=== PATIENT | male | born 1965 | race Caucasian/White ===

== ENCOUNTER 2023-05-15 01:20 | Inpatient (IN) ==
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
[2023-05-15] MEDS ORDERED: VANCOMYCIN CONSULT ACTIVE PRN ×2 (10:21→12:09)
[2023-05-15] MEDS: Patient's ALLERGY Info needs ENTERED SCH (10:49)
[2023-05-15] MEDS: PROPOFOL IV EMULSION 10 MG/ML 100 ML VIAL IV ONE ×2 (11:13→14:15)
[2023-05-15] MEDS: metroNIDAZOLE 500 MG/100 ML BAG IV SCH (11:14)
[2023-05-15] MEDS: CEFEPIME 2,000 MG in SYRINGE 0 ML IV ONE (11:14)
--- NOTE | 2023-05-15 11:15 | XRay Report ---
XR orbits for MRI HISTORY: 58 years-old Male Screening for foreign body for MRI screening for MRI COMPARISON: None TECHNIQUE: 3 views of the orbits FINDINGS: Endotracheal and enteric tubes are noted. Dental amalgam hardware. No opaque foreign body of the orbi ts identified. IMPRESSION: No opaque foreign body of the orbits identified. ACT 112: Negative or not required by law. The above report was generated using voice recognition software. It may contain grammatical, syntax o r spelling errors. Electronically signed by: Juan Diego Casey M.D. 05/15/2023 11:14 AM
[2023-05-15 11:20] LABS: Albumin Globulin Ratio 1.4 (0.9-2); Albumin Level 3.8 gm/dl (3.4-5.0); BUN Creatinine Ratio 9.6 (10-20); Bilirubin,Total 0.6 mg/dl (0.2-1.0); Calcium 8.6 mg/dl (8.6-10.3); Creatinine Clr Calc Pharmacy 70.1 ml/min; Est GFR (African American) 66.9 ml/min; Est GFR (Non-African American) 57.8 ml/min; Globulin 2.7 gm/dl (2.5-4.0); Potassium 3.6 mmol/L (3.5-5.1); Total Protein 6.5 gm/dl (6.0-8.3)
[2023-05-15 11:26] LABS: Troponin I High Sensitivity 3.6 pg/ml (0-20)
[2023-05-15 11:32] LABS: Basophils % (auto) 0.2 %; Eosinophils # (auto) 0.06 K/uL (0.00-0.50); Eosinophils % (auto) 0.7 %; Hematocrit (blood only) 39.9 % (42.0-52.0); Hemoglobin 13.7 g/dl (14.0-18.0); Immature Granulocytes % (auto) 0.2 %; Lymphocytes # (auto) 1.24 K/uL (1.20-3.40); Mean Corpuscular Hemoglobin 29.2 pg (25.0-34.0); Mean Corpuscular Hgb Conc 34.3 g/dL (32.0-36.0); Mean Corpuscular Volume 85.1 fL (80.0-100.0); Mean Platelet Volume 13.1 fL (9.4-12.4); Monocytes # (auto) 0.56 K/uL (0.11-0.59); Monocytes % (auto) 6.3 %; Neutrophils # (auto) 6.95 K/uL (1.40-6.50); Neutrophils % (auto) 78.6 %; Platelet Count 148 K/uL (130-400); RDW Coefficient of Variation 13.2 % (11.5-14.5); RDW Standard Deviation 40.6 fL (36.4-46.3); Red Blood Count 4.69 M/uL (4.70-6.10); White Blood Count 8.85 K/ul (4.8-10.8)
[2023-05-15 11:33] LABS: Basophils # (auto) 0.02 K/uL (0.00-0.20); Immature Granulocytes # (auto) 0.02 K/uL (0.01-0.20)
[2023-05-15] MEDS ORDERED: STAT IV Infusion **Titration per Protocol STA ×2 (12:25→20:03)
[2023-05-15] MEDS: propofoL 1,000 MG/100 ML VIAL IV SCH (12:30)
[2023-05-15] MEDS: ICU Protocol for HYPERglycemia SCH (12:34)
[2023-05-15] MEDS: Patient's ALLERGY Info needs ENTERED STA (12:35)
[2023-05-15] MEDS: OPTIRAY 320 125ml IV ONE (12:35)
[2023-05-15] MEDS: VANCOMYCIN HCL 2,000 MG in SODIUM CHLORIDE 0.9% 500 ML IV ONE (12:36)
[2023-05-15 13:00] LABS: Magnesium 2.1 mg/dl (1.7-2.4)
[2023-05-15] MEDS: PROPOFOL BOLUS FROM BAG IV PRN (13:00)
--- NOTE | 2023-05-15 13:27 | Electrocardiogram Report ---
Test Reason : Blood Pressure : / mmHG Vent. Rate : 075 BPM Atrial Rate : 075 BPM P-R Int : 162 ms QRS Dur : 086 ms QT Int : 374 ms P-R-T Axes : 039 -06 014 degrees QTc Int : 417 ms Normal sinus rhythm Incomplete right bundle branch block Left atrial enlargement Borderline ECG No previous ECGs available Confirmed by Tunde Johnson ([id number]) on 05/15/2023 1:26:55 PM Referred By: Lee Alves Confirmed By:Tunde Johnson
--- NOTE | 2023-05-15 13:41 | CT Scan Report ---
CT angio chest PE protocol CT DOSE: 773.49 mGy.cm HISTORY: 58 years-old Male with PE. Acute shortness of breath TECHNIQUE: Multiple CTA images of the chest were obtained after the intravenous administration of 117 ml Optiray. Coronal and sagittal MIPS were obtained from the axial data set and were submitted for review. All measurements were obtained according to NASCET criteria. A dose lowering technique was u tilized adhering to the principles of ALARA. COMPARISON: None. FINDINGS: CTA: Mild cardiomegaly. No pericardial effusion. Unremarkable thoracic aorta. No pulmonary emboli. CT CHEST: Unremarkable thyroid. Satisfactory positioning of the endotracheal tube. There are a few borderline e nlarged mediastinal and hilar lymph nodes measuring up to 12 mm within the right hilum. Trace pleural effusions. No pneumothorax. Distal tip of enteric tube terminates in the gastric body. Dependent bib asilar consolidation, right greater than left with mild mucous plugging. No acute upper abdominal abn ormality. No acute fracture. IMPRESSION: 1. No pulmonary emboli identified. 2. Satisfactory positioning of the endotracheal and enteric tubes. 3. Dependent bibasilar consolidation with right lower lobe mucous plugging. Findings are favored to r epresent atelectasis, however aspiration/pneumonia could appear similarly. 4. Mild nonspecific mediastinal and hilar lymphadenopathy. ACT 112: Negative or not required by law. The above report was generated using voice recognition software. It may contain grammatical, syntax o r spelling errors. Electronically signed by: Juan Diego Casey M.D. 05/15/2023 1:39 PM
--- NOTE | 2023-05-15 14:09 | Critical Care Consultation ---
Date of Consultation May 15, 2023 Assessment & Plan (1) Abnormal brain MRI: (2) Aspiration pneumonia: (3) Paroxysmal A-fib: (4) Respiratory failure: (5) Syncope and collapse: Plan 58-year-old male with a history of hypertension and presenting to the to the hospital as a direct admission from another facility due to acute hypoxic respiratory failure and altered mental status. MRI of the brain concerning for possible lesion in the right parietal region. Further imaging will be required with contrast. Will start the patient on antiepileptic therapy at this time. Continue broad-spectrum antibiotics to cover for aspiration pneumonia. MRSA screen was negative and thus vancomycin was discontinued. Follow cultures from the sputum, blood and urine. Will also obtain bronchoscopic cultures. Obtain EEG to evaluate for ongoing epileptic activity. May have a low threshold for transfer to tertiary center if EEG is identifying seizure activity despite propofol and antiepileptic medications. Continue with propofol and fentanyl for pain and sedation control. Maintain RASS goal -2. SCDs and Lovenox for DVT prophylaxis. Patient's updated at bedside. Patient is currently a full code. CRITICAL CARE TIME - I have personally spent 44 minutes of critical care time in the direct management of this patient. This is a life/limb threatening event. This includes time spent evaluating patient, direct bedside care, chart review, placing orders, interpretation of diagnostic studies, discussion with consultants, patient, and family members, as well as other required patient management activities. This time is exclusive of all separately billable procedures, and teaching time and separate from and in addition to any other critical care service time. History of Present Illness Reason for Consultation: Intubated and sedated. Attending Physician: Lee Alves MD History of Present Illness History is unobtainable from the patient as he is currently intubated and sedated. History is obtained from review of the chart, discussion with the hospitalist service, discussion with at bedside and bedside nursing. Patient was reportedly in the garage yesterday and has been relatively well taking care of items in the garage and talking to his son. Suddenly he appeared confused and started to fall. His son caught him and lowered him to the ground. Patient was unresponsive. He apparently woke up and appeared blue. CPR was initiated. EMS arrived and observed left-sided facial droop with left-sided gaze preference. Some hand twitching was noted, but no significant shaking or myoclonic activity. Patient was reportedly bradycardic while in the ER. He was unable to be successfully intubated in the field and brought to the ER where he was intubated. He was noted to have bradycardia with heart rates in the 20s in the ER. [facility] [place] was consulted for possible higher level of care. Patient was transferred to ICU via [facility]. He is currently intubated and sedated with propofol and fentanyl. He had a CT of his chest which revealed no evidence of pulmonary embolism. Mild nonspecific mediastinal and hilar lymphadenopathy. Dependent bibasilar consolidation with mucous plugging noted. MRI brain is concerning for possible right-sided parietal lesion. CTA of the head and neck at the outside facility without any obvious evidence of stroke. Sputum cultures and blood cultures pending. Patient currently on cefepime, metronidazole. MRSA screen negative. Allergies Allergy/AdvReac Type Severity Reaction Status Date / Time No Known Allergies Allergy Unverified 05/15/23 12:34 Home Medications Medication Instructions Recorded Confirmed Type aspirin 81 mg chewable tablet 81 mg PO DAILY 05/15/23 05/15/23 History brimonidine 0.2 %-timolol 0.5 % 1 drp ophthalmic (eye) DAILY 05/15/23 05/15/23 History eye drops (Combigan) latanoprost 0.005 % eye drops 1 drp ophthalmic (eye) PM 05/15/23 05/15/23 History metoprolol tartrate 50 mg tablet 50 mg PO BID 05/15/23 05/15/23 History Patient History Medical History (Updated 05/15/23 @ 14:14 by Yann Lobo MD) Abnormal brain MRI HTN (hypertension) Aspiration pneumonia Respiratory failure Syncope and collapse Afib Family History (Updated 05/15/23 @ 11:26 by Lee Alves MD) Mother Cancer renal cancer requiring nephrectomy Brother Cancer leukemia Fibrillation, atrial w/ syncopal events and RVR Father Cancer 'some type of blood cancer' Fibrillation, atrial Social History (Updated 05/15/23 @ 11:27 by Lee Alves MD) Smoking Status: Never smoker Hx Alcohol Use: No Hx Substance Use: No Preferred Language: Arabic Communication Ability: Effective Electric Power Line Repairer Required: No Beliefs That Will Affect Care: None Current Living Situation: Spouse Other Information That Helps Us Care for You: No Feels Safe at Home: Declines to Answer Assistive Devices: Contacts Review of Systems Review of Systems: All systems reviewed & are unremarkable except as noted in HPI & below Physical Exam Physical Exam: Constitutional: Intubated Eyes: Pupils are equal round and reactive to light. Conjunctivae are normal. Anicteric sclera. Ears nose, mouth and throat: Patient currently intubated and sedated. Endotracheal tube in place Neck: Trachea is midline. Visual inspection is normal. Respiratory: Diminished bibasilar crackles. Cardiovascular: Regular rate and rhythm. No murmurs. No edema. Gastrointestinal: Normal bowel sounds, soft, nontender and nondistended. No hepatosplenomegaly noted. Musculoskeletal: No cyanosis. Patient is able to move all extremities. Strength is 5 out of 5 in the upper and lower extremities. Skin: No rashes, warm dry and intact. Neurologic: Sedated. No obvious focal signs Psychiatric: Unable to assess Results & Data Results & Data Vital Signs (Past 12 Hours) Vital Signs Temp Pulse Resp BP Pulse Ox O2 Del Method FiO2 05/15/23 10:57 Mechanical Vent 40 05/15/23 10:47 79 19 100 50 05/15/23 10:20 38.0 C H 79 18 97 05/15/23 10:17 38.0 C H 79 18 129/72 98 05/15/23 10:12 79 Coding Level of Care Code 68852 CRITICAL CARE 1ST 30-74M Diagnoses Abnormal brain MRI R90.89 Aspiration pneumonia of both lower lobes, unspecified aspiration pneumonia type J69.0 Laterality: bilateral Lung location: lower lobe of lung Aspiration pneumonia type: unspecified Paroxysmal A-fib I48.0 Acute respiratory failure with hypoxia J96.01 Chronicity: acute Respiratory failure complication: hypoxia Syncope and collapse R55 (2) Aspiration pneumonia Laterality: bilateral Lung location: lower lobe of lung Aspiration pneumonia type: unspecified Qualified Code(s): J69.0 - Pneumonitis due to inhalation of food and vomit (4) Respiratory failure Chronicity: acute Respiratory failure complication: hypoxia Qualified Code(s): J96.01 - Acute respiratory failure with hypoxia
[2023-05-15] MEDS: PLASMA-LYTE A 1,000 ML IV SCH (14:14)
[2023-05-15 14:33] LABS: Bilirubin Direct 0.1 mg/dl (0-0.2)
[2023-05-15] MEDS ORDERED: 0.2 MICRON FILTER SET 1 EACH IV SCH (14:45)
--- NOTE | 2023-05-15 14:50 | Procedure Note ---
Procedure Note: Bronchoscopy Procedure PREOPERATIVE DIAGNOSIS: Aspiration pneumonia POSTOPERATIVE DIAGNOSIS: Aspiration PROCEDURE PERFORMED: Flexible fiberoptic bronchoscopy with bronchial washing COMPLICATIONS: None. INDICATION: Evaluate for aspiration pneumonia PROCEDURE: Consent obtained from patient's as patient is intubated and sedated. Time out performed directly prior to to the bronchoscopy. Bronchoscope was inserted via the endotracheal tube. Patient was hyperoxygenated with 100% FiO2 via the ventilator. Endotracheal tube was appropriately positioned above the nolberto. Thick secretions were noted emanating from the bilateral lower lobes. These were suctioned and sent to the lab for processing. I performed aggressive suctioning and lavage of the right and left lower lobes. Airways appeared relatively clear after bronchoscopy. The bronchoscope was removed. Patient tolerated the procedure well. Recommendations: Follow-up bronchial wash cultures and cytology from the bilateral tracheobronchial tree. [facility] Procedure Codes (Charges) Pulmonary/Thoracic Procedure 1: Pulmonary and Thoracic: 13567 Dx bronchoscopy/wash
[2023-05-15] MEDS: PHENYTOIN 1,500 MG in 0.9 % SODIUM CHLORIDE 100 ML IV SCH (15:04)
[2023-05-15] MEDS ORDERED: LORazepam 2 MG in SYRINGE 1 ML IV PRN (15:18)
--- NOTE | 2023-05-15 15:19 | XCELERA ---
[id number] \\[id number]
[2023-05-15] MEDS: MIDAZOLAM HCL 1 MG/ML 2ML VIAL IV STA (15:51)
[2023-05-15] MEDS: GADOBUTROL 65ML VIAL IV ONE (16:30)
[2023-05-15 17:07] LABS: Eosinophil Body Fluid Man 1 %; Fluid Mono/Macrophage 4 %; Lymphocyte Body Fluid Man 2 %; Neutrophil Body Fluid Man 93 %
--- NOTE | 2023-05-15 17:44 | Electroencephalogram ---
EEG Procedure Note Date of Service May 15, 2023 Start / End Times Start Time: 171 End Time: [address] Lobo History 58 year old with seizure activity Home Medication List Medication Instructions Recorded Confirmed Type aspirin 81 mg chewable tablet 81 mg PO DAILY 05/15/23 05/15/23 History brimonidine 0.2 %-timolol 0.5 % 1 drp ophthalmic (eye) DAILY 05/15/23 05/15/23 History eye drops (Combigan) latanoprost 0.005 % eye drops 1 drp ophthalmic (eye) PM 05/15/23 05/15/23 History metoprolol tartrate 50 mg tablet 50 mg PO BID 05/15/23 05/15/23 History Inpatient Medication List Metronidazole (Flagyl) 500 mg in 100 mls @ 100 mls/hr IV Q8H OMAR; Protocol Stop: 05/22/23 10:59 Last Infusion: 05/15/23 12:16 Dose: Infused Documented By: Admin: 05/15/23 11:14 Dose: 100 mls/hr Documented By: SERGIO Parenteral Electrolytes (Plasma-Lyte A Ph 7.4) 1,000 mls @ 125 mls/hr IV .Q8H OMAR Stop: 06/14/23 11:59 Last Admin: 05/15/23 14:14 Dose: 125 mls/hr Documented By: FAREED Propofol (Diprivan) 1,000 mg in 100 mls @ 28.44 mls/hr IV .Q3H31M OMAR; Protocol Stop: 05/18/23 12:29 Last Admin: 05/15/23 17:09 Dose: 50 mcg/kg/min, 28.4 mls/hr Documented By: FAREED Co-signed By: DTT Titration: 05/15/23 17:09 Dose: Infused Documented By: NMS Co-signed By: DTT Admin: 05/15/23 14:19 Dose: 50 mcg/kg/min, 28.4 mls/hr Documented By: FAREED Co-signed By: DMB Titration: 05/15/23 14:19 Dose: Infused Documented By: FAREED Co-signed By: DMB Titration: 05/15/23 12:50 Dose: 50 mcg/kg/min, 28.4 mls/hr Documented By: Titration: 05/15/23 12:40 Dose: 40 mcg/kg/min, 22.8 mls/hr Documented By: Titration: 05/15/23 12:35 Dose: 30 mcg/kg/min, 17.1 mls/hr Documented By: Admin: 05/15/23 12:30 Dose: 20 mcg/kg/min, 11.4 mls/hr Documented By: FAREED Co-signed By: SARA Phenytoin 1,500 mg/ Sodium (Chloride) 130 mls @ 130 mls/hr IV TODAY@1445 [facility] Stop: 06/14/23 14:44 Last Infusion: 05/15/23 16:04 Dose: Infused Documented By: Admin: 05/15/23 15:04 Dose: 130 mls/hr Documented By: FAREED Miscellaneous (Icu Protocol For Hyperglycemia) 1 each N/A ACHS [facility] Stop: 05/17/23 11:29 Last Admin: 05/15/23 12:34 Dose: Not Given Documented By: FAREED Propofol (Propofol Bolus From Bag) 20 mg IV Q5M PRN PRN Reason: Sedation Stop: 05/18/23 12:24 Last Admin: 05/15/23 13:05 Dose: 20 mg Documented By: FAREED Co-signed By: SARA Admin: 05/15/23 13:00 Dose: 20 mg Documented By: FAREED Co-signed By: SARA Discontinued Medications Gadobutrol (Gadobutrol 65ml Vial) 9.4 ml IV ONCE ONE Stop: 05/15/23 16:24 Last Admin: 05/15/23 16:30 Dose: 9.4 ml Documented By: [facility] Cefepime HCl 2,000 mg/ Syringe 20 mls @ 5 mls/min IV NOW ONE; Protocol Stop: 05/15/23 11:03 Last Admin: 05/15/23 11:14 Dose: 5 mls/min Documented By: DTT Vancomycin HCl 2,000 mg/ (Sodium Chloride) 540 mls @ 200 mls/hr IV NOW ONE Stop: 05/15/23 13:41 Last Admin: 05/15/23 12:36 Dose: Not Given Documented By: FAREED Ioversol (Optiray 320 125ml) 117 ml IV ONCE ONE Stop: 05/15/23 12:35 Last Admin: 05/15/23 12:35 Dose: 117 ml Documented By: FAM Midazolam HCl (Midazolam Hcl 1 Mg/Ml 2ml Vial) 2 mg IV NOW STA Stop: 05/15/23 14:51 Last Admin: 05/15/23 15:51 Dose: 2 mg Documented By: FAREED Miscellaneous Information (Patient's Allergy Info Needs Entered) 1 each N/A Q30M OMAR Stop: 05/15/23 12:00 Last Admin: 05/15/23 11:59 Dose: Not Given Documented By: Admin: 05/15/23 11:58 Dose: Not Given Documented By: Admin: 05/15/23 10:49 Dose: 1 each Documented By: FAREED Miscellaneous Information (Patient's Allergy Info Needs Entered) 1 each N/A NOW STA Stop: 05/15/23 11:55 Last Admin: 05/15/23 12:35 Dose: 1 each Documented By: FAREED Propofol (Propofol Iv Emulsion 10 Mg/Ml 100 Ml Vial) Confirm Administered Dose 1,000 mg IV .STK-MED ONE Stop: 05/15/23 11:11 Last Admin: 05/15/23 11:13 Dose: 1,000 mg Documented By: DTT Co-signed By: FAREED Propofol (Propofol Iv Emulsion 10 Mg/Ml 100 Ml Vial) Confirm Administered Dose 1,000 mg IV .STK-MED ONE Stop: 05/15/23 12:26 Last Admin: 05/15/23 14:15 Dose: Not Given Documented By: FAREED Description This is a 21 electrode EEG with a single channel dedicated to limited EKG. The electrodes were placed in accordance with the International 10-20 system. Interpretation The predominant background activity consists of an irregular 12 Hz, of up to 20 mV in amplitude,seen symmetrically distributed over all head regions. Superimposed are irregular slower waves of 50-60 mV admixed with the background activity Photic stimulation was performed and elicited no change in the background activity and no abnormal responses were seen. Hyperventilation was not performed. A minimal amount of muscle and movement artifact activity contaminated the recording and did not hinder interpretation to any significant degree. Throughout the recording, no focal abnormalities or potentially epileptogenic discharges were seen. In summary, this EEG was abnormal with moderate slow activity of a generalized nature, without focal abnormalities or potentially epileptogenic activity Clinical Correlation The abscence of potentially epileptogenic activity does not exclude a seizure disorder, since interictally, EEGs can be normal. Clinical correlation is required. [facility] EEG Procedure Codes Indication for Procedure (1) Seizure-like activity: Neurology Neurology: 35725 EEG include record awake & drowsy
--- NOTE | 2023-05-15 17:51 | Magnetic Resonance Report ---
MR brain wo con, MR brain wo/w con HISTORY: 58 years-old Male LEFT facial droop/eye prehosp, unresponsive acutely altered mental status COMPARISON: None TECHNIQUE: Multiplanar multisequence MRI of the brain was obtained with and without the use of IV con trast. FINDINGS: No restricted diffusion to suggest acute or subacute infarct. The study is motion degraded. Midline s tructures appear unremarkable. No acute intracranial hemorrhage, midline shift or Cephalus. There is a focal area of cortical thickening with gyral expansion and sulcal effacement within the posterior r ight temporal lobe on image 13 series 8 measuring 3.4 x 2.3 x 2.8 cm demonstrating increased T2/FLAIR signal and decreased signal on the T1 series without restricted diffusion or enhancement. This is ce ntered around a 1.3 cm T2 hyperintense/cystic focus on image 12 series 8. Brain signal is otherwise w ithin normal limits. There is normal volume of the brain parenchyma. Cerebral venous sinuses and major arterial flow voids appear patent. The skull, orbits and soft tissu es are unremarkable. Small mastoid effusions, right greater than left. Moderate mucosal thickening of the ethmoid air cells. IMPRESSION: 1. 3.4 cm nonenhancing cortically based focus of signal abnormality within the posterior right tempor al lobe is nonspecific and is suspicious for a low-grade glial neoplasm. Cortical dysplasia is an add itional differential consideration. Follow up with neurology is needed. 2. No acute or subacute infarct. 3. No acute intracranial hemorrhage, midline shift or hydrocephalus. ACT 112: Positive. There are findings on this exam that require communication between the performing entity and the patient following Patient Test Result Information Act ([place] Act 112) guidelines. The above report was generated using voice recognition software. It may contain grammatical, syntax o r spelling errors. Electronically signed by: Juan Diego Casey M.D. 05/15/2023 5:49 PM
[2023-05-15] MEDS ORDERED: METOPROLOL TARTRATE 1 MG/ML VIAL IV SCH (18:00)
[2023-05-15] MEDS: CEFEPIME 2,000 MG in SYRINGE 0 ML IV SCH (18:40)
[2023-05-15] MEDS ORDERED: fentaNYL BOLUS from BAG IV PRN (20:03)
[2023-05-15] MEDS: fentaNYL citrate 2,500 MCG/250 ML BAG IV SCH (20:15)
[2023-05-15] MEDS ORDERED: VANCOMYCIN HCL 1,500 MG in SODIUM CHLORIDE 0.9% 500 ML IV SCH (22:00)
[2023-05-16] MEDS: PHENYTOIN 100 MG in SYRINGE 0 ML IV SCH (03:40)
[2023-05-16 04:53] LABS: Albumin Globulin Ratio 1.4 (0.9-2); Albumin Level 3.4 gm/dl (3.4-5.0); BUN Creatinine Ratio 9.2 (10-20); Bilirubin,Total 0.5 mg/dl (0.2-1.0); Calcium 8.1 mg/dl (8.6-10.3); Creatinine Clr Calc Pharmacy 80.1 ml/min; Est GFR (African American) 78.7 ml/min; Est GFR (Non-African American) 67.9 ml/min; Globulin 2.5 gm/dl (2.5-4.0); Magnesium 2.1 mg/dl (1.7-2.4); Phosphorus 3.2 mg/dl (2.5-4.9); Potassium 3.6 mmol/L (3.5-5.1); Total Protein 5.9 gm/dl (6.0-8.3)
[2023-05-16 05:03] LABS: Basophils # (auto) 0.04 K/uL (0.00-0.20); Basophils % (auto) 0.4 %; Eosinophils # (auto) 0.12 K/uL (0.00-0.50); Eosinophils % (auto) 1.3 %; Hematocrit (blood only) 41.1 % (42.0-52.0); Hemoglobin 13.5 g/dl (14.0-18.0); Immature Granulocytes # (auto) 0.03 K/uL (0.01-0.20); Immature Granulocytes % (auto) 0.3 %; Lymphocytes # (auto) 1.89 K/uL (1.20-3.40); Lymphocytes % (auto) 21.2 %; Mean Corpuscular Hemoglobin 29.4 pg (25.0-34.0); Mean Corpuscular Hgb Conc 32.8 g/dL (32.0-36.0); Mean Corpuscular Volume 89.5 fL (80.0-100.0); Mean Platelet Volume 12.3 fL (9.4-12.4); Monocytes # (auto) 0.67 K/uL (0.11-0.59); Monocytes % (auto) 7.5 %; Neutrophils # (auto) 6.16 K/uL (1.40-6.50); Neutrophils % (auto) 69.3 %; Platelet Count 126 K/uL (130-400); RDW Coefficient of Variation 13.2 % (11.5-14.5); RDW Standard Deviation 43.1 fL (36.4-46.3); Red Blood Count 4.59 M/uL (4.70-6.10); White Blood Count 8.91 K/ul (4.8-10.8)
[2023-05-16] MEDS: ACETAMINOPHEN 1,000 MG/100 ML VIAL IV PRN (05:46)
[2023-05-16] MEDS: POTASSIUM CHLORIDE 20 MEQ/15 ML UDC NG STA (06:19)
--- NOTE | 2023-05-16 07:25 | Hospitalist Progress Note ---
Date of Service May 16, 2023 Assessment & Plan (1) Syncope and collapse: Plan: Syncope and collapse.? Seizure with parietal lesion Patient sudden onset of syncope. Similar episode 1 month ago associate with new onset atrial fibrillation, patient had agitation and confusion en route to the hospital where he was intubated. Reportedly in sinus rhythm on presentation to [facility]. Concern for aspiration during the event. Transferred to [facility] for intensive care management. MRI reveals posterior temporal brain lesion. Patient was sedated given phenytoin neurology consult recommends changing to Keppra. Acute respiratory failure and failure to protect airway patient was subsequently intubated for protection and now is extubated and speaking. Able to move about and walk. Respiratory failure has resolved he has been treated for aspiration pneumonia at this time with Unasyn (2) Abnormal brain MRI: Plan: -MRI brain with right-sided parietal lesion with potential syncope 2/2 seizure. Patient had twitching but no clonic/tonic shaking per /son - post contrast images pending.- Pt loaded with phenytoin transition to Keppra 750 twice daily - EEG abnormal with moderate slow activity of a generalized nature, without focal abnormalities or potentially epileptogenic activity 05/16/2023 (3) Aspiration pneumonia: Plan: Blood cultures ordered, sputum culture pending. Sputum culture thick/creamy white/infected appearing Patient on Unasyn therapy at this time MRSA nare negative COVID/fluA/flu B negative at [facility] (4) Paroxysmal A-fib: Plan: Metoprolol recommended discontinuation by cardiology if atrial fibrillation recurs consider antiarrhythmic and/or diltiazem.- If blood pressure control is needed will recommend alternative agents to beta- blockade for concern of vasovagal syncope on presentation Patient is not on anticoagulation. Per family report this was discussed however patient was felt to be a low [id number] risk and high bleeding risk due to sudden syncope and falls. Plan CODE STATUS: Full code Discussion made for referral to [facility] as an outpatient for neurosurgical consideration Admission and Anticipated Discharge Date Admission Date: May 15, 2023 Subjective pt is a bit fatigued, visited x 2, spoke to at bedside, no focal complaints but is with sinus tachy and low grade temperatures Physical Exam Physical Exam: Patient awake and alert. He has no coughing. He does have some rhonchorous breath sounds at the bases of his lungs bilaterally. Card exam is tachycardic it is not a regular Neurologically he may have some mild asynchrony of his ocular muscles but no other focal deficits this seems to resolve once he improves Results & Data Results & Data Vital Signs (Past 12 Hours) Vital Signs Temp Pulse Resp BP Pulse Ox O2 Del Method FiO2 05/16/23 05:30 100.4 F H 83 16 05/16/23 05:30 112/81 05/16/23 05:00 77 18 99 05/16/23 05:00 109/62 05/16/23 04:30 77 18 97 05/16/23 04:30 107/62 05/16/23 04:00 73 18 97 05/16/23 04:00 106/65 05/16/23 04:00 30 05/16/23 03:30 120/72 05/16/23 03:30 73 18 98 05/16/23 03:00 72 15 98 05/16/23 03:00 112/68 05/16/23 02:30 74 16 96 05/16/23 02:30 103/62 05/16/23 02:10 71 18 96 30 05/16/23 02:00 100.0 F H 05/16/23 02:00 73 18 96 05/16/23 02:00 97/62 L 05/16/23 01:30 113/77 05/16/23 01:30 73 20 94 05/16/23 01:00 77 18 100 05/16/23 01:00 113/70 05/16/23 00:30 78 18 98 05/16/23 00:30 111/68 05/16/23 00:22 76 19 97 30 05/16/23 00:00 100.0 F H 05/16/23 00:00 75 18 100 05/16/23 00:00 133/79 05/16/23 00:00 78 05/16/23 00:00 35 05/15/23 23:30 110/72 05/15/23 23:30 76 18 96 05/15/23 23:00 111/69 05/15/23 23:00 75 18 97 05/15/23 22:30 111/68 05/15/23 22:30 76 18 96 05/15/23 22:00 108/73 05/15/23 22:00 76 16 96 05/15/23 21:30 80 16 96 03/03/24 21:30 106/67 05/15/23 21:13 81 18 96 35 05/15/23 21:00 100.0 F H 05/15/23 21:00 83 16 96 05/15/23 21:00 118/71 05/15/23 20:30 111/72 05/15/23 20:30 90 18 95 05/15/23 20:00 Mechanical Vent 60 05/15/23 20:00 40 05/15/23 20:00 93 H 19 98 05/15/23 20:00 100.0 F H 147/87 H 05/15/23 19:30 89 18 98 05/15/23 19:30 134/81 Laboratory Results Reviewed CBC reviewed chemistry Discussed case personally with neurology Discussed case electronically with pulmonary critical care Downgrade patient from ICU status reviewed all medications and orders PG Care Time/CCT Total # of Minutes Spent Total Time Spent with Patient: Total time spent is greater than 50% in coordination of care (as documented) at patient's floor/unit and/or counseling patient: Coding Level of Care Code 09425 SUB INP/OBS CARE 3/50MIN Diagnoses Syncope and collapse R55 Abnormal brain MRI R90.89 Aspiration pneumonia of both lower lobes, unspecified aspiration pneumonia type J69.0 Aspiration pneumonia type: unspecified Laterality: bilateral Lung location: lower lobe of lung Paroxysmal A-fib I48.0 (3) Aspiration pneumonia Aspiration pneumonia type: unspecified Laterality: bilateral Lung location: lower lobe of lung Qualified Code(s): J69.0 - Pneumonitis due to inhalation of food and vomit
--- NOTE | 2023-05-16 07:49 | Critical Care Progress Note ---
Date of Service May 16, 2023 Assessment & Plan (1) Abnormal brain MRI: (2) Aspiration pneumonia: (3) Paroxysmal A-fib: (4) Respiratory failure: (5) Syncope and collapse: Plan Impression: 58-year-old male with a history of hypertension and presenting to the to the hospital as a direct admission from another facility due to acute hypoxic respiratory failure and altered mental status with questionable seizure activity. 24-hour events: The patient was transferred in. MRI of the brain was completed with findings noted above. EEG completed showing no evidence of seizure activity. Has been hemodynamically stable with minimal vent settings. Pursuing sedation trial this morning with possible SBT and vent liberation. Recommendations: 1. Neurologic: MRI of the brain with right parietal lesion. Formal ne uroconsultation pending. Continue Keppra. Can transition to oral once liberated from the ventilator. Will need neurology and potentially outpatient neurosurgical evaluation once stable. Will restart his ophthalmic eyedrops once extubated. 2. Cardiovascular: Hemodynamically stable. History of paroxysmal A-fib. Will restart metoprolol as hemodynamics allow. No indication for anticoagulation currently. 3. Pulmonary: Intubated due to what sounds like postictal state. CT of the chest with some bibasilar atelectasis/consolidative changes. Should improve with incentive spirometry and out of bed to chair once extubated. Bronchoscopy was completed yesterday with BAL. BAL demonstrated a neutrophilic predominance. Secretions from the lower lobes were aspirated and sent. See comments under ID below. 4. GI: Should be able to advance diet as tolerated once extubated. 5. Renal: Electrolytes, acid-base status, and fluid status acceptable. Continue to follow clinically. Discontinue Bishop. 6. Endocrine: Glycemic control per protocol. 7. ID: Sputum growing a staph species. Nasal MRSA PCR negative. Await bronchoscopy cultures. Patient with continued low-grade fevers. Currently day #2 cefepime Flagyl. The patient does not have risk factors for resistant organisms so we will de-escalate therapies to Unasyn. Await cultures. 8. Heme-onc: Mild anemia. DVT prophylaxis with Lovenox. No family immediately available. They will be updated once present. Patient can likely be transitioned out of the intensive care unit to the floor later today depending on clinical course. Will sign off once he leaves the ICU. Admission and Anticipated Discharge Date Admission Date: May 15, 2023 Subjective Patient is intubated and sedated Review of Systems Review of Systems: Unobtainable due to endotracheal tube Physical Exam Constitutional: WD/WN, vitals as above Intubated and sedated on the ventilator Neck: trachea midline, no thyromegaly Respiratory: normal respiratory effort, lungs clear to auscultation Cardiovascular: RRR, no murmur, no edema Gastrointestinal (Abdomen): normal bowel sounds, soft, nontender, no hepatosplenomegaly Musculoskeletal: Extremities: extremities normal to inspection Skin: no rashes, warm and dry Neurologic: Sedated. The patient does move all 4 extremities and turns his head to voice. Exam limited due to sedation Lymphatic: no cervical lymphadenopathy Results & Data Results & Data Vital Signs (Past 12 Hours) Vital Signs Temp Pulse Resp BP Pulse Ox O2 Del Method FiO2 05/16/23 05:30 38.0 C H 83 16 05/16/23 05:30 112/81 05/16/23 05:00 77 18 99 05/16/23 05:00 109/62 05/16/23 04:30 77 18 97 05/16/23 04:30 107/62 05/16/23 04:00 73 18 97 05/16/23 04:00 106/65 05/16/23 04:00 30 05/16/23 03:30 120/72 05/16/23 03:30 73 18 98 05/16/23 03:00 72 15 98 05/16/23 03:00 112/68 05/16/23 02:30 74 16 96 05/16/23 02:30 103/62 05/16/23 02:10 71 18 96 30 05/16/23 02:00 37.8 C H 05/16/23 02:00 73 18 96 05/16/23 02:00 97/62 L 05/16/23 01:30 113/77 05/16/23 01:30 73 20 94 05/16/23 01:00 77 18 100 05/16/23 01:00 113/70 05/16/23 00:30 78 18 98 05/16/23 00:30 111/68 05/16/23 00:22 76 19 97 30 05/16/23 00:00 37.8 C H 05/16/23 00:00 75 18 100 05/16/23 00:00 133/79 05/16/23 00:00 78 05/16/23 00:00 35 05/15/23 23:30 110/72 05/15/23 23:30 76 18 96 05/15/23 23:00 111/69 05/15/23 23:00 75 18 97 05/15/23 22:30 111/68 05/15/23 22:30 76 18 96 05/15/23 22:00 108/73 05/15/23 22:00 76 16 96 05/15/23 21:30 80 16 96 05/15/23 21:30 106/67 05/15/23 21:13 81 18 96 35 05/15/23 21:00 37.8 C H 05/15/23 21:00 83 16 96 05/15/23 21:00 118/71 05/15/23 20:30 111/72 05/15/23 20:30 90 18 95 05/15/23 20:00 Mechanical Vent 60 05/15/23 20:00 40 05/15/23 20:00 93 H 19 98 05/15/23 20:00 37.8 C H 147/87 H Critical Care Results & Data Vital Signs (Past 12 Hours) Vital Signs Temp Pulse Resp BP Pulse Ox O2 Del Method FiO2 05/16/23 05:30 38.0 C H 83 16 05/16/23 05:30 112/81 05/16/23 05:00 77 18 99 05/16/23 05:00 109/62 05/16/23 04:30 77 18 97 05/16/23 04:30 107/62 05/16/23 04:00 73 18 97 05/16/23 04:00 106/65 05/16/23 04:00 30 05/16/23 03:30 120/72 05/16/23 03:30 73 18 98 05/16/23 03:00 72 15 98 05/16/23 03:00 112/68 05/16/23 02:30 74 16 96 05/16/23 02:30 103/62 05/16/23 02:10 71 18 96 30 05/16/23 02:00 37.8 C H 05/16/23 02:00 73 18 96 05/16/23 02:00 97/62 L 05/16/23 01:30 113/77 03/04/24 01:30 73 20 94 05/16/23 01:00 77 18 100 05/16/23 01:00 113/70 05/16/23 00:30 78 18 98 05/16/23 00:30 111/68 05/16/23 00:22 76 19 97 30 05/16/23 00:00 37.8 C H 05/16/23 00:00 75 18 100 05/16/23 00:00 133/79 05/16/23 00:00 78 05/16/23 00:00 35 05/15/23 23:30 110/72 05/15/23 23:30 76 18 96 05/15/23 23:00 111/69 05/15/23 23:00 75 18 97 05/15/23 22:30 111/68 05/15/23 22:30 76 18 96 05/15/23 22:00 108/73 05/15/23 22:00 76 16 96 05/15/23 21:30 80 16 96 05/15/23 21:30 106/67 05/15/23 21:13 81 18 96 35 05/15/23 21:00 37.8 C H 05/15/23 21:00 83 16 96 05/15/23 21:00 118/71 05/15/23 20:30 111/72 05/15/23 20:30 90 18 95 05/15/23 20:00 Mechanical Vent 60 05/15/23 20:00 40 05/15/23 20:00 93 H 19 98 05/15/23 20:00 37.8 C H 147/87 H Lab & Micro Results (Past 24 Hours) RBC 4.59 M/uL (4.70-6.10) L 05/16/23 WBC 8.91 K/ul (4.8-10.8) 05/16/23 Hgb 13.5 g/dl (14.0-18.0) L 05/16/23 Hct 41.1 % (42.0-52.0) L 05/16/23 MCV 89.5 fL (80.0-100.0) 05/16/23 MCH 29.4 pg (25.0-34.0) 05/16/23 MCHC 32.8 g/dL (32.0-36.0) 05/16/23 RDW Standard Deviation 43.1 fL (36.4-46.3) 05/16/23 RDW Coefficient of Variation 13.2 % (11.5-14.5) 05/16/23 Plt Count 126 K/uL (130-400) L 05/16/23 MPV 12.3 fL (9.4-12.4) 05/16/23 Neutrophils (%) (Auto) 69.3 % 05/16/23 Lymphocytes (%) (Auto) 21.2 % 05/16/23 Monocytes # (Auto) 0.67 K/uL (0.11-0.59) H 05/16/23 Eosinophils # (Auto) 0.12 K/uL (0.00-0.50) 05/16/23 Immature Granulocyte % (Auto) 0.3 % 05/16/23 Neutrophils # (Auto) 6.16 K/uL (1.40-6.50) 05/16/23 Lymphocytes # (Auto) 1.89 K/uL (1.20-3.40) 05/16/23 Monocytes # (Auto) 0.67 K/uL (0.11-0.59) H 05/16/23 Eosinophils # (Auto) 0.12 K/uL (0.00-0.50) 05/16/23 Basophils # (Auto) 0.04 K/uL (0.00-0.20) 05/16/23 Immature Granulocyte # (Auto) 0.03 K/uL (0.01-0.20) 4 Na 139 mmol/L (136-145) 05/16/23 K 3.6 mmol/L (3.5-5.1) 05/16/23 Cl 108 mmol/L (98-107) H 05/16/23 CO2 25 mmol/L (21-32) 05/16/23 Anion Gap 6 (3-11) 05/16/23 BUN 11 mg/dl (6-23) 05/16/23 Creatinine 1.19 mg/dl (0.6-1.4) 05/16/23 Estimated GFR ( Amer) 78.7 ml/min 05/16/23 Estimated GFR (Non-Af Amer) 67.9 ml/min 05/16/23 BUN/Creatinine Ratio 9.2 (10-20) L 05/16/23 Glu 96 mg/dl (70-99(Fasting)) 05/16/23 Ca 8.1 mg/dl (8.6-10.3) L 05/16/23 Phosphorus Level 3.2 mg/dl (2.5-4.9) 05/16/23 Total Bilirubin 0.5 mg/dl (0.2-1.0) 05/16/23 Direct Bilirubin 0.1 mg/dl (0-0.2) 05/15/23 AST 31 U/L (13-39) 05/16/23 ALT 13 U/L (7-52) 05/16/23 Alkaline Phosphatase 52 U/L (34-104) 05/16/23 TP 5.9 gm/dl (6.0-8.3) L 05/16/23 Albumin 3.4 gm/dl (3.4-5.0) 05/16/23 Globulin 2.5 gm/dl (2.5-4.0) 05/16/23 Albumin/Globulin Ratio 1.4 (0.9-2) 05/16/23 Mg 2.1 mg/dl (1.7-2.4) 05/16/23 04:15 Calcium Level 8.1 mg/dl (8.6-10.3) L 05/16/23 04:15 Microbiology 05/15/23 Unknown Fungal Smear - Final Bronch Wash,Right Lower Lobe 05/15/23 Unknown Gram Stain - Final Bronch Wash,Right Lower Lobe 05/15/23 11:50 Gram Stain - Final Sputum,Vent Suction Diagnostic Findings (Past 24 Hours) Brain MRI 05/15/23 10:26 MR brain wo con, MR brain wo/w con HISTORY: 58 years-old Male LEFT facial droop/eye prehosp, unresponsive acutely altered mental status COMPARISON: None TECHNIQUE: Multiplanar multisequence MRI of the brain was obtained with and without the use of IV contrast. FINDINGS: No restricted diffusion to suggest acute or subacute infarct. The study is motion degraded. Midline structures appear unremarkable. No acute intracranial hemorrhage, midline shift or Cephalus. There is a focal area of cortical thickening with gyral expansion and sulcal effacement within the posterior right temporal lobe on image 13 series 8 measuring 3.4 x 2.3 x 2.8 cm demonstrating increased T2/FLAIR signal and decreased signal on the T1 series without restricted diffusion or enhancement. This is centered around a 1.3 cm T2 hyperintense/cystic focus on image 12 series 8. Brain signal is otherwise within normal limits. There is normal volume of the brain parenchyma. Cerebral venous sinuses and major arterial flow voids appear patent. The skull, orbits and soft tissues are unremarkable. Small mastoid effusions, right greater than left. Moderate mucosal thickening of the ethmoid air cells. IMPRESSION: 1. 3.4 cm nonenhancing cortically based focus of signal abnormality within the posterior right temporal lobe is nonspecific and is suspicious for a low-grade glial neoplasm. Cortical dysplasia is an additional differential consideration. Follow up with neurology is needed. 2. No acute or subacute infarct. 3. No acute intracranial hemorrhage, midline shift or hydrocephalus. ACT 112: Positive. There are findings on this exam that require communication between the performing entity and the patient following Patient Test Result Information Act ([place] Act 112) guidelines. The above report was generated using voice recognition software. It may contain grammatical, syntax or spelling errors. Electronically signed by: Juan Diego Casey M.D. 05/15/2023 5:49 PM Orbit X-Ray 05/15/23 10:54 XR orbits for MRI HISTORY: 58 years-old Male Screening for foreign body for MRI screening for MRI COMPARISON: None TECHNIQUE: 3 views of the orbits FINDINGS: Endotracheal and enteric tubes are noted. Dental amalgam hardware. No opaque foreign body of the orbits identified. IMPRESSION: No opaque foreign body of the orbits identified. ACT 112: Negative or not required by law. The above report was generated using voice recognition software. It may contain grammatical, syntax or spelling errors. Electronically signed by: Juan Diego Casey M.D. 05/15/2023 11:14 AM Chest CTA 05/15/23 11:03 CT angio chest PE protocol CT DOSE: 773.49 mGy.cm HISTORY: 58 years-old Male with PE. Acute shortness of breath TECHNIQUE: Multiple CTA images of the chest were obtained after the intravenous administration of 117 ml Optiray. Coronal and sagittal MIPS were obtained from the axial data set and were submitted for review. All measurements were obtained according to NASCET criteria. A dose lowering technique was utilized adhering to the principles of ALARA. COMPARISON: None. FINDINGS: CTA: Mild cardiomegaly. No pericardial effusion. Unremarkable thoracic aorta. No pulmonary emboli. CT CHEST: Unremarkable thyroid. Satisfactory positioning of the endotracheal tube. There are a few borderline enlarged mediastinal and hilar lymph nodes measuring up to 12 mm within the right hilum. Trace pleural effusions. No pneumothorax. Distal tip of enteric tube terminates in the gastric body. Dependent bibasilar consolidation, right greater than left with mild mucous plugging. No acute upper abdominal abnormality. No acute fracture. IMPRESSION: 1. No pulmonary emboli identified. 2. Satisfactory positioning of the endotracheal and enteric tubes. 3. Dependent bibasilar consolidation with right lower lobe mucous plugging. Findings are favored to represent atelectasis, however aspiration/pneumonia could appear similarly. 4. Mild nonspecific mediastinal and hilar lymphadenopathy. ACT 112: Negative or not required by law. The above report was generated using voice recognition software. It may contain grammatical, syntax or spelling errors. Electronically signed by: Juan Diego Casey M.D. 05/15/2023 1:39 PM Brain MRI 05/15/23 13:42 MR brain wo con, MR brain wo/w con HISTORY: 58 years-old Male LEFT facial droop/eye prehosp, unresponsive acutely altered mental status COMPARISON: None TECHNIQUE: Multiplanar multisequence MRI of the brain was obtained with and without the use of IV contrast. FINDINGS: No restricted diffusion to suggest acute or subacute infarct. The study is motio n degraded. Midline structures appear unremarkable. No acute intracranial hemorrhage, midline shift or Cephalus. There is a focal area of cortical thickening with gyral expansion and sulcal effacement within the posterior right temporal lobe on image 13 series 8 measuring 3.4 x 2.3 x 2.8 cm demonstrating increased T2/FLAIR signal and decreased signal on the T1 series without restricted diffusion or enhancement. This is centered around a 1.3 cm T2 hyperintense/cystic focus on image 12 series 8. Brain signal is otherwise within normal limits. There is normal volume of the brain parenchyma. Cerebral venous sinuses and major arterial flow voids appear patent. The skull, orbits and soft tissues are unremarkable. Small mastoid effusions, right greater than left. Moderate mucosal thickening of the ethmoid air cells. IMPRESSION: 1. 3.4 cm nonenhancing cortically based focus of signal abnormality within the posterior right temporal lobe is nonspecific and is suspicious for a low-grade glial neoplasm. Cortical dysplasia is an additional differential consideration. Follow up with neurology is needed. 2. No acute or subacute infarct. 3. No acute intracranial hemorrhage, midline shift or hydrocephalus. ACT 112: Positive. There are findings on this exam that require communication between the performing entity and the patient following Patient Test Result [place] Act [place] Act 112) guidelines. The above report was generated using voice recognition software. It may contain grammatical, syntax or spelling errors. Electronically signed by: Juan Diego Casey M.D. 05/15/2023 5:49 PM I & O Totals 24 Hours 05/15/23 05/16/23 05/17/23 06:59 06:59 06:59 Intake Total 2032.516 / 2032.516 Output Total 1025 / 1025 Balance 1007.516 / 1007.516 Cumulative 05/15/23 thru 05/16/23 06:58 Intake Total 2032.516 Output Total 1025 Balance 1007.516 RT Ventilator Mngmt (Last Documented) Ventilator Ordered Settings Ventilator Support Mode Assist Control 05/16/23 04:00 Respiratory Rate 16 05/16/23 05:30 Ventilator Tidal Volume 450 05/16/23 04:00 Setting Minute Ventilation 8.1 05/16/23 02:10 Positive End Expiratory 5 05/16/23 04:00 Pressure Fraction of Inspired Oxygen 30 05/16/23 04:00 Machine Comment decreased fio2 to 30% 05/16/23 00:22 Ventilator - PT Measurements Respiratory Rate 16 Exhaled Tidal Volume 452 Minute Ventilation 8.1 Peak Inspiratory Airway 19 Pressure Plateau Pressure 18.4 Respiratory Cycle Inspiratory: 1:3.2 Expiratory Ratio Inspiratory Phase Time 0.8 End-Tidal CO2 32 Static Lung Compliance 33.73 Dynamic Lung Compliance 32.29 Normal Static Lung Compliance 47.00 Coding Level of Care Code 35294 SUB INP/OBS CARE 3/50MIN Diagnoses Abnormal brain MRI R90.89 Aspiration pneumonia of both lower lobes, unspecified aspiration pneumonia type J69.0 Aspiration pneumonia type: unspecified Laterality: bilateral Lung location: lower lobe of lung Paroxysmal A-fib I48.0 Acute respiratory failure with hypoxia J96.01 Chronicity: acute Respiratory failure complication: hypoxia Syncope and collapse R55 (2) Aspiration pneumonia Aspiration pneumonia type: unspecified Laterality: bilateral Lung location: lower lobe of lung Qualified Code(s): J69.0 - Pneumonitis due to inhalation of food and vomit (4) Respiratory failure Chronicity: acute Respiratory failure complication: hypoxia Qualified Code(s): J96.01 - Acute respiratory failure with hypoxia
[2023-05-16] MEDS: ENOXAPARIN INJ 40 MG/0.4 ML SYR SQ SCH (08:04)
[2023-05-16] MEDS: levETIRAcetam IV 750 MG in 0.9 % SODIUM CHLORIDE 100 ML IV SCH (08:04)
--- NOTE | 2023-05-16 09:14 | Neurology Consultation ---
Date of Consultation May 16, 2023 Assessment & Plan (1) Syncope and collapse: (2) Seizure-like activity: (3) Abnormal brain MRI: Plan Patient has had 2 specific episodes of sudden syncope and collapse of uncertain etiology. The event itself is more consistent with a cardiovascular onset and he does have a history of atrial fibrillation (with rapid ventricular rate) diagnosed 1 month ago. The episode May 14 that brought him into the hospital was associated with severe bradycardia and he was on 100 mg metoprolol. Each event had some seizure-like activity but the event itself was not reminiscent of a seizure. Nevertheless, I cannot entirely exclude seizures as the origin to the spells. Is an 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 Recommendations: 1. Continue levetiracetam 750 mg twice daily. We will cover him for potential seizures 2. For now, I would hold off on initiating Decadron or steroids because of the lesion. The edema is mild and there is no mass effect. He is not having headaches and I am not sure this lesion is otherwise clinically active. 3. Increase activity as able and consider physical and Occupational Therapy if needed 4. Cardiology to evaluate dysrhythmia and causes of cardiovascular syncope. 5. Discontinue Dilantin. 6. Patient needs a PCP Overall, I spent a total of 120 minutes with this case including review of records, review of MRI films, direct evaluation the patient at bedside, report generation, and discussion of the case with the patient at bedside, via telephone, RN at bedside, Dr. Rausch radiology, Dr. Romo and Dr. Guillen including differential diagnosis and treatment options. History of Present Illness Reason for Consultation: Patient is a 58-year-old, who I was asked to see at the request of Dr. Alves, for neurologic consultation regarding syncope, abnormal MRI of the brain, and possible seizures. Requesting Physician: Dr. Alves Attending Physician: Justin Guillen MD History of Present Illness Patient has a history of hypertension and has been on metoprolol and 81 mg aspirin. About a month ago, he was eating lunch and suddenly, without warning, collapsed passing out. He had a loss of consciousness for a minute or 2 and then when he woke up came back to full sentences within 30 seconds or so. He had a little bit of hand twitching but had no tonic-clonic activity, tongue biting, or incontinence. He was found to be in atrial fibrillation with rapid ventricular rate. His metoprolol was increased to 100 mg a day at that time. After that he felt that he was doing fine with no episodes of dizziness, lightheadedness, or other symptoms. On May 14 in the morning he was out in the garage with his son when he had the sudden onset of getting a blank confused look and then fell. He was unresponsive. Apparently the family members thought he was blue and not breathing and initiated CPR. I am not sure how long this was but I see no record of CPR once the EMS arrived. He was noted to have bradycardia into the 20s. He was intubated and taken directly to the [facility] ICU. There was a question of left facial droop and left gaze preference. His hands were twitching but there was no tonic-clonic activity, tongue biting, or incontinence. He was given 1.5 g of phenytoin. CBC and CHEM profile were largely unremarkable. Carboxyhemoglobin was 1.4. He had a low-grade temperature of 38.0 with a pulse of 79 and respiratory rate of 18. Blood pressure was 129/72 and O2 saturation 98%. Yesterday afternoon, and EEG was mildly slow in general with some superimposed fast activity likely medication effect. There were no focal abnormalities or potentially epileptogenic discharges seen. CT scan of the chest showed some bibasilar consolidation and there was a concern of aspiration pneumonia MRI of the brain showed a nonenhancing right posterior temporal lesion with possible cystic component and with only a little edema and no significant mass effect. 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 This morning the patient is extubated and is fairly intact. He complains of chest pain and some hoarseness of voice with some mild dizziness but no headache, vision issue, focal weakness or shortness of breath. Yesterday he woke was given 750 mg of levetiracetam twice daily. Allergies Allergy/AdvReac Type Severity Reaction Status Date / Time No Known Allergies Allergy Unverified 05/15/23 12:34 Home Medications Medication Instructions Recorded Confirmed Type aspirin 81 mg chewable tablet 81 mg PO DAILY 05/15/23 05/15/23 History brimonidine 0.2 %-timolol 0.5 % 1 drp ophthalmic (eye) DAILY 05/15/23 05/15/23 History eye drops (Combigan) latanoprost 0.005 % eye drops 1 drp ophthalmic (eye) PM 05/15/23 05/15/23 History metoprolol tartrate 50 mg tablet 50 mg PO BID 05/15/23 05/15/23 History Patient History Medical History Abnormal brain MRI HTN (hypertension) Aspiration pneumonia Respiratory failure Syncope and collapse Afib Family History Mother Cancer renal cancer requiring nephrectomy Brother Cancer leukemia Fibrillation, atrial w/ syncopal events and RVR Father , age 63 of multiple myeloma Cancer 'some type of blood cancer' Fibrillation, atrial Social History (Updated 05/16/23 @ 09:32 by Pedro Escobar MD) Smoking Status: Never smoker Hx Alcohol Use: No Hx Substance Use: No Preferred Language: Yoruba Communication Ability: Effective Mycology Teacher Required: No Beliefs That Will Affect Care: None Current Living Situation: Spouse current occupational status: employed current occupation: Employed in [employer] Feels Safe at Home: Declines to Answer Assistive Devices: Contacts Review of Systems Constitutional: no fever, no fatigue and no weakness Eyes: no diplopia, no eye pain and no worsening vision Ear, Nose, Mouth, Throat: + sore throat and + hoarseness; no ear p ain, no tinnitus, no hearing loss, no dizziness, no snoring and no dysphagia Respiratory: no cough and no dyspnea Cardiovascular: + chest pain (Central sternal chest wall pain); no palpitations and no lightheadedness Gastrointestinal: no abdominal pain, no nausea and no vomiting Musculoskeletal: no back pain, no neck pain, no radicular pain, no joint pain and no myalgia Integumentary: no rash and no lesions Neurologic: + confusion; no gait abnormality, no loc alized weakness, no generalized weakness, no tingling, no numbness, no tremor(s), no abnormal movements, no headache(s), no abnormal speech and no memory loss Psychiatric: no depression, no irritability, no anxiety, no difficulty concentrating, no confusion and no hallucinations Endocrine: no fatigue and no flushing Hematologic / Lymphatic: no easy bleeding and no easy bruising Allergy / Immunological: no urticaria and no problem reported Exam (Neuro) Physical Exam: The patient is right-handed. The patient is awake, alert, and attentive. Speech is normal without any aphasia or dysarthria. Mentation and thought processes are intact, with full orientation and normal fund of knowledge. Mood and affect are normal and appropriate. Appearance and grooming are normal. Short and long-term memory are intact. The discs are difficult to visualize secondary to small pupils. Pupils are 2 mm bilaterally and reactive to light. Extraocular eye muscles are intact without nystagmus. Visual acuity and visual jimenez seem normal grossly to confrontation. There are no deficits to sensation in the face in all 3 distributions of the fifth cranial nerve bilaterally. Corneal reflexes are positive bilaterally. Facial strength and symmetry was normal bilaterally. Hearing seems intact grossly to voice and finger rub bilaterally. Palate moves well without asymmetry. There is normal sternocleidomastoid and trapezius strength bilaterally. Tongue is midline with good strength bilaterally. Neck has a full range of motion without discomfort. There are no cervical bruits bilaterally. There are no cranial or ocular bruits. Heart is without murmur. There is a regular rhythm and rate. Cervical, thoracic, and lumbar spine are nontender to palpation. Gait was not tested. Stance sitting up some was reasonable. With outstretched arms there is no drift. There are no resting, postural, or action tremors. There is no ataxia with finger to nose testing. There is good facility in the hands. No other abnormal involuntary movements are noted. Motor strength is 5/5 diffusely in the arms bilaterally including deltoids, biceps, triceps, brachioradialis, wrist flexors and extensors, medical anthropology director, and intrinsic hand muscles. Motor strength is 5/5 diffusely in the legs bilaterally including hip flexors, quadriceps, hamstrings, gastrocnemius, tibialis anterior, tibialis posterior, and Peroneii muscles bilaterally. Toe extensors are normal and there is good bulk in the extensor digitorum brevis muscles bilaterally. The limbs have good tone without rigidity or spasticity. There is no atrophy noted in the muscles. Muscle bulk is normal, there is no tenderness to palpation, no myotonia to percussion, and no fasciculations seen. Sensory examination is intact to touch and pin throughout all 4 limbs diffusely. Reflexes are 2/4 in the biceps, triceps, brachioradialis, quadriceps, and Achilles tendons bilaterally. Toes are downgoing with plantar stimulation bilaterally. Peripheral pulses are present and of normal quality distally in all 4 limbs. There is no peripheral edema noted in the limbs. Results & Data Vital Signs (Past 12 Hours) Vital Signs Temp Pulse Resp BP Pulse Ox FiO2 05/16/23 07:50 94 05/16/23 05:30 38.0 C H 83 16 05/16/23 05:30 112/81 05/16/23 05:00 77 18 99 05/16/23 05:00 109/62 05/16/23 04:30 77 18 97 05/16/23 04:30 107/62 05/16/23 04:00 73 18 97 05/16/23 04:00 106/65 05/16/23 04:00 30 05/16/23 03:30 120/72 05/16/23 03:30 73 18 98 05/16/23 03:00 72 15 98 05/16/23 03:00 112/68 05/16/23 02:30 74 16 96 05/16/23 02:30 103/62 05/16/23 02:10 71 18 96 30 05/16/23 02:00 37.8 C H 05/16/23 02:00 73 18 96 05/16/23 02:00 97/62 L 05/16/23 01:30 113/77 05/16/23 01:30 73 20 94 05/16/23 01:00 77 18 100 05/16/23 01:00 113/70 05/16/23 00:30 78 18 98 05/16/23 00:30 111/68 05/16/23 00:22 76 19 97 30 05/16/23 00:00 37.8 C H 05/16/23 00:00 75 18 100 05/16/23 00:00 133/79 05/16/23 00:00 78 05/16/23 00:00 35 05/15/23 23:30 110/72 05/15/23 23:30 76 18 96 05/15/23 23:00 111/69 05/15/23 23:00 75 18 97 05/15/23 22:30 111/68 05/15/23 22:30 76 18 96 05/15/23 22:00 108/73 03/03/24 22:00 76 16 96 05/15/23 21:30 80 16 96 05/15/23 21:30 106/67 05/15/23 21:13 81 18 96 35 PG Care Time/CCT Total # of Minutes Spent Total Time Spent with Patient: Total time spent is greater than 50% in coordination of care (as documented) at patient's floor/unit and/or counseling patient: Coding Level of Care Code 38168 IN/OBS CONSULT LVL 5,80M Diagnoses Syncope and collapse R55 Seizure-like activity R56.9 Abnormal brain MRI R90.89 Time Spent (min) 120
[2023-05-16] MEDS: LATANOPROST 0.005% OP SOLN 2.5 ML BTL OP SCH (09:30)
[2023-05-16] MEDS: BRIMONIDINE TARTRATE 0.2% 5ML OPB SCH (10:10)
[2023-05-16] MEDS: TIMOLOL MALEATE 0.5% OP SOLN 5 ML BTL OPB SCH (10:10)
[2023-05-16] MEDS: ONDANSETRON INJ 2 MG/ML 2 ML VIAL IV PRN (10:43)
[2023-05-16] MEDS: ONDANSETRON INJ 2 MG/ML 2 ML VIAL ONE (11:00)
[2023-05-16] MEDS: METOPROLOL TARTRATE 25 MG TAB PO SCH (12:28)
[2023-05-16] MEDS: AMPICILLIN/SULBACTAM SOD 3,000 MG in SODIUM CHLOR 0.9% MINI-B 100 ML IV SCH (12:28)
[2023-05-16] MEDS: ACETAMINOPHEN 500 MG TAB PO PRN (13:14)
[2023-05-16] MEDS: traMADol HCL 50 MG TABLET PO PRN (13:14)
--- NOTE | 2023-05-16 13:25 | Cardiology Consultation ---
Date of Consultation May 16, 2023 Assessment & Plan (1) Syncope and collapse: Given his longstanding tendency to orthostatic lightheadedness and the fact that he seemed to have a prodrome before both syncopal episodes, vasovagal syncope seems more likely than an arrhythmic event (such as a conversion pause when rhythm changes from atrial fibrillation to sinus). Nonspecific tremor without incontinence or tongue biting is more consistent with convulsive syncope (vasovagal) than true seizure, but the focal neurologic findings after the second syncopal episode (eye gaze abnormalities and facial droop) suggest the possibility that the neoplasm noted on brain MRI could play a role. At this point, would allow some degree of permissive hypertension/tachycardia rather than routinely administer beta-ulises, since this could prolong any vasodepressor/bradycardic episode if one were to recur. Will discontinue metoprolol for now. No evidence of myocardial ischemia, troponin negative and ECG benign. No need for stress testing at this point. Would recommend ambulatory ECG/MCOT monitor upon discharge to further exclude dysrhythmia as well as to evaluate extent of bradycardia should he have recurrent vasovagal syncope. At this point, in the absence of any evidence for conduction disease or tachy/bradycardia syndrome, no immediate role for pacemaker. If he does have recurrent vasovagal syncope, would need to better characterize the degree of br adycardia versus vasodepressor component to determine whether pacemaker is necessary. Would recommend regular electrolyte repletion, attention to regular oral input, and for now allowing mild permissive hypertension (will discontinue beta- ulises). (2) Paroxysmal A-fib: Single episode of atrial fibrillation after syncopal event is nonspecific finding and may be an isolated event with low incidence of recurrence. Atrial fibrillation alone should not cause syncope, although sometimes a conversion pause when individuals flip back into sinus rhythm can be prolonged and result in symptoms. Given concerns regarding vasovagal syncope with a possible vasodepressor component, would consider flecainide or other antiarrhythmic rather than negative chronotrope if he does demonstrate recurrent atrial fibrillation. At this point, would hold beta-ulises and monitor for any recurrent dysrhythmia on telemetry and then by ambulatory ECG monitor. His [id number] score is 1 (HTN), agree with withholding anticoagulation at this point given absence of evidence for recurring atrial fibrillation as well as his increased risk of intracranial bleeding with recurrent syncope and brain lesion on MRI. (3) HTN (hypertension): Home BPs have been normotensive on metoprolol. For reasons above, favor holding this, could consider losartan rather than negative chronotrope for BP management if hypertension recurs/persists. (4) Abnormal brain MRI: Evaluation by neurology underway. History of Present Illness Reason for Consultation: Syncope Attending Physician: Justin Guillen MD History of Present Illness 58-year-old man with no significant medical history experienced syncopal episode with subsequent new onset atrial fibrillation 1 month ago, had a second syncopal episode on 05/14/2023 with prolonged alteration of consciousness requiring sedation/intubation, transferred here from [facility] 05/15/2023. At his usual baseline, patient and both note that he frequently has orthostatic lightheadedness and that he has felt presyncopal at times. He is reasonably physically active and notes no chest pain, dyspnea on exertion, or subjective palpitations. He often relates the lightheadedness to prolonged standing after having missed a meal (usually lunch). Just prior to his first syncopal episode, he complained that he felt nauseous and lightheaded while standing in the kitchen preparing a late lunch (he had not yet eaten). He lost consciousness and struck his head, awoke about 2 minutes later and was confused for about a minute, no incontinence or tongue biting, minor tremor but no tonic-clonic activity. Evaluation showed new onset atrial fibrillation with rapid ventricular response, his metoprolol succinate 50 mg daily dose (started for hypertension in the past) was increased to 100 mg daily. He had no complaints prior to his second syncopal episode, which also occurred the day after missing lunch, but an observer noted that he looked pale and asked "What's wrong?". His son noted that he was staring off into space, he collapsed into his son's arms and suffered no trauma. He was unresponsive and did briefly receive CPR, had minor tremor but no tonic-clonic activity, incontinence, or tongue biting. Some bradycardia noted with heart rate briefly dropping to the 20 bpm range prehospital, but no atrial dysrhythmias. Received midazolam for agitation and ultimately was intubated. Prehospital caregivers also noted left facial droop and left eye deviation which was transient. At the time of my evaluation this morning, he did note some chest wall pain (had received CPR) and mild ongoing nausea. Denied dyspnea, palpitations, or lightheadedness. Allergies Allergy/AdvReac Type Severity Reaction Status Date / Time No Known Allergies Allergy Unverified 05/15/23 12:34 Home Medications Medication Instructions Recorded Confirmed Type aspirin 81 mg chewable tablet 81 mg PO DAILY 05/15/23 05/15/23 History brimonidine 0.2 %-timolol 0.5 % 1 drp ophthalmic (eye) DAILY 05/15/23 05/15/23 History eye drops (Combigan) latanoprost 0.005 % eye drops 1 drp ophthalmic (eye) PM 05/15/23 05/15/23 History metoprolol tartrate 50 mg tablet 50 mg PO BID 05/15/23 05/15/23 History Patient History Medical History Abnormal brain MRI HTN (hypertension) Aspiration pneumonia Respiratory failure Syncope and collapse Afib Family History Mother Cancer renal cancer requiring nephrectomy Brother Cancer leukemia Fibrillation, atrial w/ syncopal events and RVR Father , age 63 of multiple myeloma Cancer 'some type of blood cancer' Fibrillation, atrial Social History Smoking Status: Never smoker Hx Alcohol Use: No Hx Substance Use: No Preferred Language: Kiswahili Communication Ability: Effective Auto Claims Adjuster Required: No Beliefs That Will Affect Care: None Current Living Situation: Spouse current occupational status: employed current occupation: Employed in [employer] Other Information That Helps Us Care for You: No Feels Safe at Home: Declines to Answer Assistive Devices: Contacts Physical Exam Physical Exam: Appears mildly uncomfortable but not acutely distressed. Temperature 100.4 degrees. BP borderline hypertensive. Negative orthostatic change in vitals per nursing (sitting and standing). Mildly tachycardic with heart rate 107 bpm. Respirations 27 but unlabored. Skin: no ecchymoses or generalized lesions. HEENT: unremarkable. Neck: JVP at the clavicle at 90 degrees, no carotid bruits. Lungs: clear bilaterally. Cardiac: regular rhythm, normal S1-2, no murmur. Abdomen: benign. Extremities: no edema, pulses intact. Neurologic: normal affect and conversation, nonfocal. Results & Data Laboratory Results Troponin on admission 3.6. Hemoglobin 13.5 with normal white count and platelet count 126,000. Normal electrolytes, BUN 11, creatinine 1.19. Normal transaminases. Diagnostic Findings ECG on admission showed sinus rhythm at 75 bpm with incomplete right bundle branch block left atrial enlargement, isoelectric ST segments. ECG today was similar with minor anterior T wave flattening but isoelectric ST segments. Chest CT showed no evidence of pulmonary emboli. Bibasilar consolidation with right lobe mucous plugging, atelectasis versus aspiration pneumonia. Nonspecific mediastinal and hilar lymphadenopathy. 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 PG Care Time/CCT Total # of Minutes Spent Total Time Spent with Patient: Total time spent is greater than 50% in coordination of care (as documented) at patient's floor/unit and/or counseling patient: Coding Level of Care Code 08765 IN/OBS CONSULT LVL 5,80M Diagnoses Syncope and collapse R55 Paroxysmal A-fib I48.0 HTN (hypertension) I10 Abnormal brain MRI R90.89
--- NOTE | 2023-05-16 16:45 | Electrocardiogram Report ---
Test Reason : Blood Pressure : / mmHG Vent. Rate : 074 BPM Atrial Rate : 074 BPM P-R Int : 168 ms QRS Dur : 094 ms QT Int : 388 ms P-R-T Axes : 044 001 019 degrees QTc Int : 430 ms Normal sinus rhythm Incomplete right bundle branch block Minor Nonspecific T wave abnormality Anterior leads Abnormal ECG When compared with ECG of 15-MAY-2023 11:45, Nonspecific T wave abnormality, worse in Anterior leads Confirmed by Tunde Johnson ([id number]) on 05/16/2023 4:45:42 PM Referred By: Lee Alves Confirmed By:Tunde Johnson
[2023-05-16] MEDS: MoRPHine SULFATE 2 MG/ML CARP IV PRN (17:17)
[2023-05-16] MEDS: MoRPHine SULFATE 2 MG/ML CARP IV ONE (20:13)
[2023-05-17 05:36] LABS: Basophils # (auto) 0.03 K/uL (0.00-0.20); Basophils % (auto) 0.3 %; Eosinophils # (auto) 0.13 K/uL (0.00-0.50); Eosinophils % (auto) 1.4 %; Hematocrit (blood only) 38.8 % (42.0-52.0); Hemoglobin 12.5 g/dl (14.0-18.0); Immature Granulocytes # (auto) 0.03 K/uL (0.01-0.20); Immature Granulocytes % (auto) 0.3 %; Lymphocytes # (auto) 1.09 K/uL (1.20-3.40); Lymphocytes % (auto) 11.5 %; Mean Corpuscular Hemoglobin 28.7 pg (25.0-34.0); Mean Corpuscular Hgb Conc 32.2 g/dL (32.0-36.0); Mean Platelet Volume 12.6 fL (9.4-12.4); Monocytes # (auto) 0.67 K/uL (0.11-0.59); Monocytes % (auto) 7.1 %; Neutrophils # (auto) 7.52 K/uL (1.40-6.50); Neutrophils % (auto) 79.4 %; Platelet Count 125 K/uL (130-400); RDW Coefficient of Variation 13.1 % (11.5-14.5); RDW Standard Deviation 42.7 fL (36.4-46.3); Red Blood Count 4.36 M/uL (4.70-6.10); White Blood Count 9.47 K/ul (4.8-10.8)
[2023-05-17 05:50] LABS: Albumin Globulin Ratio 1.3 (0.9-2); Albumin Level 3.5 gm/dl (3.4-5.0); BUN Creatinine Ratio 10.5 (10-20); Bilirubin,Total 0.5 mg/dl (0.2-1.0); Calcium 8.2 mg/dl (8.6-10.3); Creatinine Clr Calc Pharmacy 100.4 ml/min; Est GFR (African American) 103.3 ml/min; Est GFR (Non-African American) 89.1 ml/min; Globulin 2.8 gm/dl (2.5-4.0); Potassium 3.7 mmol/L (3.5-5.1); Total Protein 6.3 gm/dl (6.0-8.3)
--- NOTE | 2023-05-17 08:37 | XRay Report ---
XR chest 1V portable HISTORY: 58 years-old Male eval for pneumonia acute shortness of breath COMPARISON: CTA of the chest 05/15/2023 TECHNIQUE: AP view the chest FINDINGS: Cardiac silhouette is mildly enlarged. Right perihilar and bibasilar consolidation noted. Status post removal of the enteric and endotracheal tubes. Bones appear grossly intact. There is no overt pulmon verna edema. IMPRESSION: 1. Right perihilar and left basilar predominant airspace opacities may represent atelectasis versus p neumonia. Continued follow-up recommended. 2. Status post extubation with removal of the enteric tube. ACT 112: Negative or not required by law. The above report was generated using voice recognition software. It may contain grammatical, syntax o r spelling errors. Electronically signed by: Juan Diego Casey M.D. 05/17/2023 8:35 AM
[2023-05-17] MEDS ORDERED: ASPIRIN 81 MG CHEW PO SCH (09:00)
--- NOTE | 2023-05-17 09:56 | Neurology Progress Note ---
Date of Service May 17, 2023 Assessment & Plan (1) Syncope and collapse: (2) Seizure-like activity: (3) Abnormal brain MRI: Plan Patient has had 2 specific episodes of sudden syncope and collapse of uncertain etiology. The event itself is more consistent with a cardiovascular onset and he does have a history of atrial fibrillation (with rapid ventricular rate) diagnosed 1 month ago. The episode May 14 that brought him into the hospital was associated with severe bradycardia and he was on 100 mg metoprolol. However, this episode May 14 did have some seizure-like activity with turning of head and eyes to 1 side and facial droop. Although these episodes are not obvious for seizures, given his right posterior temporal lesion he would be at risk for a seizure disorder. 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 Recommendations: 1. Continue levetiracetam 750 mg twice daily. 2. For now, I would hold off on initiating Decadron or steroids for the right temporal lesion. The edema is mild and there is no mass effect. He is not having headaches 3. Increase activity as able and consider physical and Occupational Therapy if needed 4. keep off dilantin 5. Patient needs a PCP 6. Please contact me if I can be of further assistance on this case. I can follow-up as an outpatient, if desired. Overall, I spent a total of 35 minutes with this case including review of records, review of MRI films, direct evaluation the patient at bedside, report generation, and discussion of the case with the patient at bedside, RN at bedside, and Dr. Guillen including differential diagnosis and treatment options. Admission and Anticipated Discharge Date Admission Date: May 15, 2023 Subjective Patient still complains of sternal chest pain but has no complaint of headache or dizziness. He has no weakness or numbness in the limbs. Nursing reports no new issues or seizures. Blood pressure was 159/88. Cardiology is concerned about vasovagal syncope. Results & Data Vital Signs (Past 12 Hours) Vital Signs Temp Pulse Resp BP Pulse Ox O2 Del Method O2 Flow Rate 05/17/23 08:47 99 H 17 159/88 H 92 Nasal Cannula 2 05/17/23 08:16 94 H 19 155/89 H 93 Nasal Cannula 2 05/17/23 08:00 36.9 C 05/17/23 07:43 93 H 19 168/92 H Nasal Cannula 2 05/17/23 07:40 93 H 16 166/90 H 94 Nasal Cannula 2 05/17/23 07:00 96 H 17 147/83 H 93 Nasal Cannula 2 05/17/23 06:00 92 H 12 96 05/17/23 05:30 134/71 05/17/23 05:30 91 H 14 96 05/17/23 05:00 139/77 05/17/23 05:00 98 H 17 96 05/17/23 04:30 151/83 H 05/17/23 04:30 100 H 15 98 05/17/23 04:00 136/78 05/17/23 04:00 88 14 94 05/17/23 03:30 143/76 H 05/17/23 03:30 93 H 14 92 05/17/23 03:00 93 H 14 94 05/17/23 03:00 141/82 H 05/17/23 02:30 94 H 15 93 05/17/23 02:30 144/89 H 05/17/23 02:00 156/92 H 05/17/23 02:00 103 H 17 96 05/17/23 01:30 133/73 05/17/23 01:30 87 13 96 05/17/23 01:00 131/70 05/17/23 01:00 89 12 96 05/17/23 00:30 133/74 05/17/23 00:30 91 H 14 97 05/17/23 00:00 97 H 05/17/23 00:00 127/72 05/17/23 00:00 87 13 95 05/16/23 23:30 137/75 05/16/23 23:30 87 14 96 05/16/23 23:00 156/87 H 05/16/23 23:00 89 13 93 05/16/23 22:30 138/73 05/16/23 22:30 93 H 13 96 05/16/23 22:00 94 H 18 95 05/16/23 22:00 135/101 H Exam (Neuro) Physical Exam: He is awake and alert. Speech is without aphasia or dysarthria. Mood and affect are normal and appropriate. Thought processes are intact to conversation Extraocular eye muscles are intact without nystagmus. There is no facial droop. Tongue is midline. Coordination is normal in the arms without tremor or ataxia. Strength is symmetrical in the limbs and there are no abnormal involuntary movement. PG Care Time/CCT Total # of Minutes Spent Total Time Spent with Patient: Total time spent is greater than 50% in coordination of care (as documented) at patient's floor/unit and/or counseling patient: Coding Level of Care Code 43147 SUB INP/OBS CARE 2/35MIN Diagnoses Syncope and collapse R55 Seizure-like activity R56.9 Abnormal brain MRI R90.89
--- NOTE | 2023-05-17 10:55 | Cardiology Progress Note ---
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 Nonetheless, would try to minimize risk of precipitating/exacerbating vasovagal syncope by remaining off beta-ulises. If his hypertension is persistent, could initiate an agent with no negative chronotropic activities, such as losartan. Would avoid diuretic given his tendency to apparent volume depletion. Although arrhythmia remains unlikely, will arrange for MCOT monitor upon dis charge to further confirm the absence of arrhythmia as well as to document any bradycardic response if he does have recurrent vasovagal syncope. As noted, will be important for him to attend to his volume status routinely with regular electrolyte repletion, attention to oral input, and for now allowing mild permissive hypertension. No need for stress testing with normal ECG and negative troponin. (2) Paroxysmal A-fib: Plan: As noted, single episode in the context of syncopal event fairly unlikely to recur. Did recommend that he keep metoprolol on hand, if he were to have tachypalpitations suggesting recurrent atrial fibrillation he could take a dose of metoprolol at that time (50 mg). However, would favor having him demonstrate tendency to recurrent atrial fibrillation rather than prophylactically using metoprolol given concerns about vasovagal syncope. No plans for anticoagulation in the near term given low likelihood of recurrent atrial fibrillation and increased risk of bleeding with syncopal episode/brain lesion. (3) HTN (hypertension): Plan: As above, if persistent initiate losartan or similar agent. (4) Abnormal brain MRI: Plan: Will need neurosurgical evaluation. Admission and Anticipated Discharge Date Admission Date: May 15, 2023 Subjective Uneventful night, no seizures or dysrhythmias. Still notes chest wall and back discomfort, worse on deep inspiration. Also notes some sense of "lightheadedness" despite normal hemodynamics. Telemetry showed sinus rhythm/mild sinus tachycardia with no dysrhythmias, ectopy, bradycardia, or heart block. Physical Exam Physical Exam: Appears mildly uncomfortable but not acutely distressed. Afebrile currently, Tmax 100.6. BP mildly hypertensive. Pulse 99 bpm and regular. Respirations 17 and unlabored. Skin: no ecchymoses or generalized lesions. HEENT: unremarkable. Neck: JVP at the clavicle at 90 degrees, no carotid bruits. Lungs: clear bilaterally. Cardiac: regular rhythm, normal S1-2, no murmur. Abdomen: benign. Extremities: no edema, pulses intact. Neurologic: normal affect and conversation, nonfocal. Results & Data Laboratory Results Normal electrolytes, BUN 10, creatinine 0.95. PG Care Time/CCT Total # of Minutes Spent Total Time Spent with Patient: Total time spent is greater than 50% in coordination of care (as documented) at patient's floor/unit and/or counseling patient: Coding Level of Care Code 90035 SUB INP/OBS CARE 2/35MIN Diagnoses Syncope and collapse R55 Paroxysmal A-fib I48.0 HTN (hypertension) I10 Abnormal brain MRI R90.89
--- NOTE | 2023-05-17 15:39 | Hospitalist Progress Note ---
Date of Service May 17, 2023 Assessment & Plan (1) Syncope and collapse: Plan: Syncope and collapse.? Seizure with parietal lesion Patient sudden onset of syncope. Similar episode 1 month ago associate with new onset atrial fibrillation, patient had agitation and confusion en route to the hospital where he was intubated. Reportedly in sinus rhythm on presentation to [facility]. Concern for aspiration during the event. Transferred to [facility] for intensive care management. MRI reveals posterior temporal brain lesion. Neurology endorses continuing Keppra 750 twice daily with outpatient follow-up Patient will have a neurosurgical evaluation family is requested [facility] Acute respiratory failure and failure to protect airway patient was subsequently intubated for protection and now is extubated and speaking. Able to move about and walk. Respiratory failure has resolved he has been treated for aspiration pneumonia at this time with transition to Augmentin (2) Abnormal brain MRI: Plan: -MRI brain with right-sided parietal lesion with potential syncope 2/2 seizure. Patient had twitching but no clonic/tonic shaking per /son - post contrast images pending.- Pt loaded with phenytoin transition to Keppra 750 twice daily - EEG abnormal with moderate slow activity of a generalized nature, without focal abnormalities or potentially epileptogenic activity 05/16/2023 (3) Aspiration pneumonia: Plan: Blood cultures ordered, sputum culture pending. Sputum culture thick/creamy white/infected appearing Patient on Augmentin at this time MRSA nare negative COVID/fluA/flu B negative at [facility] (4) Paroxysmal A-fib: Plan: Metoprolol recommended discontinuation by cardiology if atrial fibrillation recurs consider antiarrhythmic and/or diltiazem.- If blood pressure control is needed will recommend alternative agents to beta- blockade for concern of vasovagal syncope on presentation Patient is not on anticoagulation. Per family report this was discussed however patient was felt to be a low [id number] risk and high bleeding risk due to sudden syncope and falls. Without recurrence of atrial fibrillation Plan CODE STATUS: Full code Discussion made for referral to [facility] as an outpatient for neurosurgical consideration Admission and Anticipated Discharge Date Admission Date: May 15, 2023 Subjective This patient seems a bit tired and spacey most of the time. He however says he feels fine. He has had no arrhythmia overnight after stopping metoprolol. Still has not reliably ambulated will have physical and Occupational Therapy evaluation today. Transition oral medication for treatment of both aspiration pneumonia and new onset seizures. Physical Exam Physical Exam: Patient awake and alert. He has no coughing. Lungs are improved and sound clear Card exam is now regular and normal rate Neurologically no focal deficits at this time denies dizziness Results & Data Results & Data Vital Signs (Past 12 Hours) Vital Signs Temp Pulse Resp BP Pulse Ox O2 Del Method O2 Flow Rate 05/17/23 12:00 91 H 17 139/94 94 Room Air 05/17/23 11:27 88 17 143/85 H 92 Room Air 05/17/23 11:20 98.6 F 05/17/23 08:47 99 H 17 159/88 H 92 Nasal Cannula 2 05/17/23 08:16 94 H 19 155/89 H 93 Nasal Cannula 2 05/17/23 08:00 Nasal Cannula 2 05/17/23 08:00 98.4 F 05/17/23 07:43 93 H 19 168/92 H Nasal Cannula 2 05/17/23 07:40 93 H 16 166/90 H 94 Nasal Cannula 2 05/17/23 07:00 96 H 17 147/83 H 93 Nasal Cannula 2 05/17/23 06:00 92 H 12 96 05/17/23 05:30 134/71 05/17/23 05:30 91 H 14 96 05/17/23 05:00 139/77 05/17/23 05:00 98 H 17 96 05/17/23 04:30 151/83 H 05/17/23 04:30 100 H 15 98 05/17/23 04:00 136/78 05/17/23 04:00 88 14 94 Laboratory Results Reviewed CBC reviewed chemistry PG Care Time/CCT Total # of Minutes Spent Total Time Spent with Patient: Total time spent is greater than 50% in coordination of care (as documented) at patient's floor/unit and/or counseling patient: Coding Level of Care Code 12516 SUB INP/OBS CARE 3/50MIN Diagnoses Syncope and collapse R55 Abnormal brain MRI R90.89 Aspiration pneumonia of both lower lobes, unspecified aspiration pneumonia type J69.0 Aspiration pneumonia type: unspecified Laterality: bilateral Lung location: lower lobe of lung Paroxysmal A-fib I48.0 (3) Aspiration pneumonia Aspiration pneumonia type: unspecified Laterality: bilateral Lung location: lower lobe of lung Qualified Code(s): J69.0 - Pneumonitis due to inhalation of food and vomit
[2023-05-17] MEDS: AMOXICILLIN/CLAVULANATE 875 MG TAB PO SCH (16:53)
[2023-05-17] MEDS: levETIRAcetam 500 MG TAB PO SCH (20:00)
[2023-05-17] MEDS: levETIRAcetam 250 MG TAB PO SCH (20:00)
[2023-05-18 04:10] LABS: Basophils # (auto) 0.03 K/uL (0.00-0.20); Basophils % (auto) 0.5 %; Eosinophils # (auto) 0.39 K/uL (0.00-0.50); Hematocrit (blood only) 38.5 % (42.0-52.0); Hemoglobin 12.7 g/dl (14.0-18.0); Immature Granulocytes # (auto) 0.03 K/uL (0.01-0.20); Immature Granulocytes % (auto) 0.5 %; Lymphocytes # (auto) 1.57 K/uL (1.20-3.40); Lymphocytes % (auto) 24.2 %; Mean Corpuscular Hemoglobin 29.2 pg (25.0-34.0); Mean Corpuscular Volume 88.5 fL (80.0-100.0); Mean Platelet Volume 11.5 fL (9.4-12.4); Monocytes # (auto) 0.55 K/uL (0.11-0.59); Monocytes % (auto) 8.5 %; Neutrophils # (auto) 3.91 K/uL (1.40-6.50); Neutrophils % (auto) 60.3 %; Platelet Count 144 K/uL (130-400); RDW Coefficient of Variation 12.8 % (11.5-14.5); RDW Standard Deviation 41.3 fL (36.4-46.3); Red Blood Count 4.35 M/uL (4.70-6.10); White Blood Count 6.48 K/ul (4.8-10.8)
[2023-05-18 04:24] LABS: Albumin Globulin Ratio 1.3 (0.9-2); Albumin Level 3.7 gm/dl (3.4-5.0); BUN Creatinine Ratio 11.6 (10-20); Bilirubin,Total 0.4 mg/dl (0.2-1.0); Calcium 8.6 mg/dl (8.6-10.3); Creatinine Clr Calc Pharmacy 110.9 ml/min; Est GFR (African American) 112.4 ml/min; Est GFR (Non-African American) 96.9 ml/min; Globulin 2.8 gm/dl (2.5-4.0); Potassium 4.2 mmol/L (3.5-5.1); Total Protein 6.5 gm/dl (6.0-8.3)
--- NOTE | 2023-05-18 10:40 | Cardiology Progress Note ---
Date of Service May 18, 2023 Assessment & Plan (1) Syncope and collapse: Plan: Recurrent syncope secondary to vasovagal and/or seizure disorder from brain neoplasm. As noted, would try to minimize risk of precipitating/exacerbating vasovagal syncope by remaining off beta-ulises. Could use losartan if he develops hypertension. Will arrange for MCOT monitor, please let me know when he is being discharged and I will notify our nurses, he can stop over the office to draft roller picker the device. (2) Paroxysmal A-fib: Plan: Keep metoprolol on hand for PRN use if he develops tachypalpitations suggesting recurrent A-fib. Risks/benefits favors avoiding anticoagulation at this time. (3) HTN (hypertension): (4) Abnormal brain MRI: Admission and Anticipated Discharge Date Admission Date: May 15, 2023 Subjective Uneventful night. No thoracic pain at rest, does note back and mild chest discomfort on deep inspiration. Telemetry shows sinus rhythm. No ectopy, dysrhythmias, or pauses. Physical Exam Physical Exam: Appears comfortable. Afebrile. Normotensive. Pulse 75 bpm and regular. Respirations 15 and unlabored. Skin: no ecchymoses or generalized lesions. HEENT: unremarkable. Neck: JVP at the clavicle at 90 degrees, no carotid bruits. Lungs: clear bilaterally. Cardiac: regular rhythm, normal S1-2, no murmur. Abdomen: benign. Extremities: no edema, pulses intact. Neurologic: normal affect and conversation, nonfocal. Results & Data Laboratory Results Normal electrolytes, BUN 10, creatinine 0.86. PG Care Time/CCT Total # of Minutes Spent Total Time Spent with Patient: Total time spent is greater than 50% in coordination of care (as documented) at patient's floor/unit and/or counseling patient: Coding Level of Care Code 81405 SUB INP/OBS CARE 2/35MIN Diagnoses Syncope and collapse R55 Paroxysmal A-fib I48.0 HTN (hypertension) I10 Abnormal brain MRI R90.89
[2023-05-18] MEDS: DOCUSATE SODIUM/SENNA 50/8.6MG TAB PO ONE (13:56)
--- NOTE | 2023-05-18 14:59 | CT Scan Report ---
CT SCAN OF THE CHEST WITHOUT IV CONTRAST CLINICAL HISTORY: Thoracic back pain COMPARISON STUDY: Chest CT dated 05/15/2023. TECHNIQUE: CT scan of the thorax was performed from the thoracic inlet to the upper abdomen. Images are reviewed in the axial, sagittal, and coronal planes. IV contrast was not administered for this ex amination as per the referring clinician. A dose lowering technique was utilized adhering to the rocio Garza. CT DOSE: 510.2 mGy.cm FINDINGS: Thyroid: Imaged portions of the thyroid gland are normal in size and attenuation. Thoracic aorta: The thoracic aorta is normal in caliber and demonstrates standard 3-vessel arch anato my. Heart: The heart is normal in size and without pericardial effusion. Lungs and pleural spaces: There are small pleural effusions with dependent atelectasis. Secretions ar e noted in the trachea. Linear opacities in the right lower lobe likely represents scarring/atelectas is. This has significantly cleared from 05/15/2023. A 2 mm left upper lobe nodule on image #67 is uncha nged. Mild groundglass opacities are noted in the right lower lobe. No pneumothorax is seen. Mediastinum: There is no mediastinal lymphadenopathy. Teri: Not well assessed without IV contrast. Axillae: There is no axillary lymphadenopathy. Upper abdomen: There is a small hiatal hernia. The gallbladder is distended with mild pericholecystic infiltration. Skeletal structures: There is an acute to subacute burst type compression fracture of T6 with associa janina paravertebral edema. There is moderate loss of height and only minimal retropulsion of fragments with no significant central canal stenosis. There is no evidence of posterior element involvement. Th ere are minimal in nature indeterminate superior end plate compression deformities of T3, T5, and T12 . No lytic or blastic bony lesions are seen. Arthritic change is noted in the shoulders. IMPRESSION: 1. Acute to subacute burst type compression fracture of T6. There is moderate loss of height and only minimal retropulsion of fragments. There is no significant central canal stenosis or evidence of pos terior element involvement. 2. There are minimal and age indeterminate superior compression deformities of T3, T5, and T12. 3. Cardiomegaly. 4. Small pleural effusions with dependent atelectasis. 5. Linear opacities in the right lower lung likely represent scarring/atelectasis. This has significa ntly cleared from 05/15/2023. 6. Minimal ground glass opacities at the right lung base are likely inflammatory. 7. The gallbladder is distended and there is mild pericholecystic infiltration. Correlate with clinic al laboratory findings for evidence of cholecystitis. If warranted this could be further assessed wit h a right upper quadrant ultrasound. 8. Additional findings as above. ACT 112: Negative or not required by law. Electronically signed by: Marciano Waterman M.D. 05/18/2023 2:57 PM
--- NOTE | 2023-05-18 15:58 | Electrocardiogram Report ---
Test Reason : Blood Pressure : / mmHG Vent. Rate : 080 BPM Atrial Rate : 080 BPM P-R Int : 170 ms QRS Dur : 084 ms QT Int : 390 ms P-R-T Axes : 048 -09 023 degrees QTc Int : 449 ms Normal sinus rhythm Incomplete right bundle branch block Left atrial enlargement Low voltage QRS Nonspecific T wave abnormality Anterior leads Abnormal ECG When compared with ECG of 16-MAY-2023 06:13, No significant change was found Confirmed by Tunde Johnson ([id number]) on 05/18/2023 3:58:02 PM Referred By: Lee Alves Confirmed By:Tunde Johnson
--- NOTE | 2023-05-18 17:24 | Hospitalist Progress Note ---
Date of Service May 18, 2023 Assessment & Plan (1) Syncope and collapse: Plan: Syncope and collapse.? Seizure with parietal lesion Patient sudden onset of syncope. Similar episode 1 month ago associate with new onset atrial fibrillation, patient had agitation and confusion en route to the hospital where he was intubated. Reportedly in sinus rhythm on presentation to [facility]. Concern for aspiration during the event. Transferred to [facility] for intensive care management. MRI reveals posterior temporal brain lesion. Neurology endorses continuing Keppra 750 twice daily with outpatient follow-up Patient will have a neurosurgical evaluation family is requested [facility] Acute respiratory failure and failure to protect airway patient was subsequently intubated for protection and now is extubated and speaking. Able to move about and walk. Respiratory failure has resolved he has been treated for aspiration pneumonia at this time with transition to Augmentin (2) Abnormal brain MRI: Plan: -MRI brain with right-sided parietal lesion with potential syncope 2/2 seizure. Patient had twitching but no clonic/tonic shaking per /son - post contrast images pending.- Pt loaded with phenytoin transition to Keppra 750 twice daily - EEG abnormal with moderate slow activity of a generalized nature, without focal abnormalities or potentially epileptogenic activity 05/16/2023 (3) Aspiration pneumonia: Plan: Blood cultures ordered, sputum culture pending. Sputum culture thick/creamy white/infected appearing Patient on Augmentin at this time MRSA nare negative COVID/fluA/flu B negative at [facility] (4) Paroxysmal A-fib: Plan: Metoprolol recommended discontinuation by cardiology if atrial fibrillation recurs consider antiarrhythmic and/or diltiazem.- If blood pressure control is needed will recommend alternative agents to beta- blockade for concern of vasovagal syncope on presentation Patient is not on anticoagulation. Per family report this was discussed however patient was felt to be a low [id number] risk and high bleeding risk due to sudden syncope and falls. Without recurrence of atrial fibrillation (5) Chest pain: Plan: pt with mechanical pleuritic chest pain ecg no acs CT chest with acute burst fracture T6 and subacute fx T 3,5,12 there is abnormal GB but pt is without sx and has normal LFT's pneumonia is improved Plan CODE STATUS: Full code Discussion made for referral to [facility] as an outpatient for neurosurgical consideration Admission and Anticipated Discharge Date Admission Date: May 15, 2023 Subjective pt has significant right sided chest pain, pleuritic in nature, no associate hypoxia Physical Exam Physical Exam: pt is in marked pain cardiac is regular lungs are splinting on right abd is soft and non tender Results & Data Results & Data Vital Signs (Past 12 Hours) Vital Signs Temp Pulse Pulse Resp BP BP Pulse Ox 05/18/23 15:36 99.0 F 82 17 146/87 H 93 05/18/23 12:11 99.1 F 05/18/23 12:00 79 14 93 05/18/23 11:22 137/90 05/18/23 11:22 80 17 05/18/23 11:00 80 14 94 05/18/23 08:00 05/18/23 08:00 74 05/18/23 07:26 98.6 F 75 15 138/86 98 O2 Del Method O2 Flow Rate 05/18/23 15:36 Room Air 05/18/23 12:11 05/18/23 12:00 Room Air 05/18/23 11:22 05/18/23 11:22 05/18/23 11:00 05/18/23 08:00 Room Air 05/18/23 08:00 05/18/23 07:26 Nasal Cannula 2 Laboratory Results review cbc review CMP ordered ct chest PG Care Time/CCT Total # of Minutes Spent Total Time Spent with Patient: Total time spent is greater than 50% in coordination of care (as documented) at patient's floor/unit and/or counseling patient: Coding Level of Care Code 51435 SUB INP/OBS CARE 3/50MIN Diagnoses Syncope and collapse R55 Abnormal brain MRI R90.89 Aspiration pneumonia of both lower lobes, unspecified aspiration pneumonia type J69.0 Aspiration pneumonia type: unspecified Laterality: bilateral Lung location: lower lobe of lung Paroxysmal A-fib I48.0 Chest pain R07.9 (3) Aspiration pneumonia Aspiration pneumonia type: unspecified Laterality: bilateral Lung location: lower lobe of lung Qualified Code(s): J69.0 - Pneumonitis due to inhalation of food and vomit
[2023-05-18] MEDS: ACETAMINOPHEN 500 MG TAB PO SCH (18:21)
[2023-05-18] MEDS: LIDOCAINE 5% 1 PATCH TD STA (20:16)
[2023-05-18] MEDS: CALCITONIN SALMON NA 200 IU/AC 3.7 ML BTL SCH (20:17)
[2023-05-19] MEDS: oxyCODONE HCL IR 5 MG TAB (IMMEDIATE RELEASE) PO PRN (00:27)
[2023-05-19 04:12] LABS: Hematocrit (blood only) 38.7 % (42.0-52.0); Hemoglobin 13.1 g/dl (14.0-18.0); Mean Corpuscular Hemoglobin 29.2 pg (25.0-34.0); Mean Corpuscular Hgb Conc 33.9 g/dL (32.0-36.0); Mean Corpuscular Volume 86.2 fL (80.0-100.0); Mean Platelet Volume 11.3 fL (9.4-12.4); Platelet Count 187 K/uL (130-400); RDW Coefficient of Variation 12.5 % (11.5-14.5); Red Blood Count 4.49 M/uL (4.70-6.10); White Blood Count 5.43 K/ul (4.8-10.8)
[2023-05-19 04:28] LABS: Albumin Globulin Ratio 1.3 (0.9-2); Albumin Level 3.7 gm/dl (3.4-5.0); BUN Creatinine Ratio 13.5 (10-20); Bilirubin,Total 0.4 mg/dl (0.2-1.0); Calcium 8.7 mg/dl (8.6-10.3); Creatinine Clr Calc Pharmacy 107.1 ml/min; Est GFR (African American) 110.8 ml/min; Est GFR (Non-African American) 95.6 ml/min; Globulin 2.8 gm/dl (2.5-4.0); Potassium 3.7 mmol/L (3.5-5.1); Total Protein 6.5 gm/dl (6.0-8.3)
--- NOTE | 2023-05-19 18:49 | Discharge Summary ---
Date of Service May 19, 2023 Admission HPI Per Admitting Provider 58yo M accepted for transfer overnight from . Seen in ICU on arrival, no history available fro mpatient due to ETT/sedation. collateral from [facility] is reviewed as below. Patient's Christina arrived shortly after pt arrived, and gives additional history as below. Christina reports that Nahun has a history of A-fib with RVR and some lightheadedness, has never had a heart attack stroke or seizure. She reports that 1 month ago he was diagnosed with his first documented episode of A-fib. At that time he was eating lunch in the kitchen and suddenly collapsed and a huge crash was heard from the kitchen. Patient had fallen face forward on the floor and was not shaking like a seizure but lightly twitching. Patient regained consciousness after around 2 minutes, was initially confused but cognitively cleared back to baseline after about 30 seconds to a minute. He had no incontinence or tongue biting. Did not have focal weakness or appear postictal at that time. Patient reported he had no warning at all prior to passing out, but did acknowledge he might have been slightly dehydrated that day per his they were seen in [facility] and patient was diagnosed with A-fib RVR. His metoprolol 50 mg dose which she was on for blood pressure was increased to 100 mg total, and he was started on aspirin 81 mg. Anticoagulation was discussed, he was felt to be overall low risk of thromboembolism per patient's and was Discharged to outpatient follow-up on aspirin anticoagulation was not recommended at that time. He has been otherwise well until the episode that caused him to present to [facility] and subsequently be transferred to [facility] today. She reports that yesterday he was in the garage and had been relatively normal and was talking to his son. Per patient's son all of a sudden without warning patient's face went blank, he appeared slightly confused for a brief moment, and then started to fall. His son caught him and lowered him to the ground and he did not have a head strike but patient had passed out completely and was unresponsive. He did not come around and started to turn blue and his son initiated CPR in the field after calling EMS. No incontinence. Some 'hadn twitching' bilaterally but no shaking/tonic clonic activity. On EMS arrival patient reportedly had a observed left-sided facial droop and left sided eye gaze. Had some bilateral hand twitching but no shaking. No bowel or bladder incontinence. At tiem of admit it is unclear from history if patient was actually hypoxic or not on EMS arrival, patient did reportedly have a br adycardic episode while in the ER unclear from initial available documentation if he was also bradycardic on EMS arrival. Patient reportedly with challenging airway management prehospital, did receive 5 mg of midazolam for confusion/combative agitation, per ER report pt unresponsive on ER arrival and had the observed episode of bradycardia 70s to 20s and was intubated at that time by RSI. Case was discussed with Sally Coleman overnight and was accepted for transfer for additional care. Review of records/initial paper labs as available from [facility] as below Record Rev: - LA 3.1 -> 1.3 - Ammonia 42 - LFTs wnl. - Cr 1.35 no baeline - UTox: +benzo (post midazolam admin), otherwise neg - Flu/COVID negative - Afeb. BP 280-130s/73-95. HR 59-68. SpO2 XR Chest: ETT in place. Atelectasis bilat. No consolidation. No pneumo. CT-H: naf, no hemorrhage CTA-Head: no stenosis, aneurysm, vascular malforation. naf. CTA-NecK: naf. CT-C w. contrast non-PE study: No evidence of PE with limited evaluation. Posterior basal segment collapse consolidation. ?Aspiration. Discusesd w/ Dr. Hoover on arrival, dedicated CT-PE study recommended. Ordered. CT Angio ab/pelvis: basal LE lung consolidations. NO acute intraabdominal process. BSG 1 eposide of bradycardia en route. Left gaze, left head turn, sluggish pupils bilateral. Agonal respiration. SpO2 >60s. Per EMS: Episode of syncope, bradycardia, resp arrest. Intubuated on ER arrival at [facility]. Per [place] [facility]: 58yo M history of recent syncope and afib with RVR, HTN, glaucoma on metop tartrate 50mg BID outpatient NO anticoag, ASA 81mg daily who presented to [facility] with LEFT facial droop, LEFT eye deviation, syncope, bradycardia in the 20s, and respiratory arrest. 5mg midazolam given by EMS due t confusion/combative while managing airway, unresponsive on ER arrival and intubated. 1x episode bardy 70s-->20s for 20 sections prior to RSI. Per family resport unresponsive, HR 20s and CPR performed in field prior to EMS arrival. Hx of Afib RVR on MTP, family confirms not on anticoag at home Principal Diagnosis Right temporal brain lesion Suspected seizures secondary to brain lesion Suspected vasovagal perhaps due to beta-blockers Thoracic spine fractures with burst fracture of T6 Aspiration pneumonia Discharge Exam Patient awake and alert has no radicular pain some pain with movement. No focal neurological deficit Discharge Data Allergies Allergy/AdvReac Type Severity Reaction Status Date / Time No Known Allergies Allergy Unverified 05/15/23 12:34 Consultations 05/15/23 10:12 Consult Hatch Supervisor Routine 05/16/23 08:42 Consult Cardiology Routine 05/16/23 09:00 Consult Neurology Routine Ordered Studies 05/15/23 10:26 MR brain wo con Urgent 05/15/23 11:03 CT angio chest PE protocol Stat 05/15/23 13:42 MRI Brain [MR brain wo/w con] Stat 05/18/23 12:12 CT chest diagnostic wo con Routine Hospital Course (1) Syncope and collapse: Syncope and collapse.? Seizure with parietal lesion Patient sudden onset of syncope. Similar episode 1 month ago associate with new onset atrial fibrillation, patient had agitation and confusion en route to the hospital where he was intubated. Reportedly in sinus rhythm on presentation to [place]. Concern for aspiration during the event. Transferred to [facility] for intensive care management. MRI reveals posterior temporal brain lesion. Neurology endorses continuing Keppra 750 twice daily for seizure disorder with outpatient follow-up Patient will have a neurosurgical evaluation family is requested [facility] records have been sent family expecting call Respiratory failure has resolved he has been treated for aspiration pneumonia at this time with transition to Augmentin (2) Abnormal brain MRI: -MRI brain with right-sided parietal lesion with potential syncope 2/2 seizure. Patient had twitching but no clonic/tonic shaking per /son - post contrast images pending.- Pt loaded with phenytoin transition to Keppra 750 twice daily - EEG abnormal with moderate slow activity of a generalized nature, without focal abnormalities or potentially epileptogenic activity 05/16/2023 (3) Aspiration pneumonia: Blood cultures negative at time of discharge sputum culture light normal primo- will be home on augmentin Patient on Augmentin at this time MRSA nare negative COVID/fluA/flu B negative at [facility] (4) Paroxysmal A-fib: Metoprolol recommended discontinuation by cardiology- outpt cardiac monitoring If blood pressure control is needed will recommend alternative agents to beta- blockade for concern of vasovagal syncope on presentation Patient is not on anticoagulation. Per family report this was discussed however patient was felt to be a low [id number] risk and high bleeding risk due to sudden syncope and falls. Without recurrence of atrial fibrillation (5) Chest pain: pt with mechanical pleuritic chest pain ecg no acs CT chest with acute burst fracture T6 and subacute fx T 3,5,12 orthospine to the be glad to follow-up in the office no recommendations for clamshell or supportive brace at this time there is abnormal GB but pt is without sx and has normal LFT's no clinical suspicion of cholecystitis Rufino Plan CODE STATUS: Full code Discussion made for referral to [facility] as an outpatient for neurosurgical consideration Total Time Total Time Spent Total Time Spent (In Minutes): It required greater than 30 minutes to prepare this patient for discharge. Discharge Plan Discharge Items Patient Disposition: Home - Self-Care Reason For Visit: RESPIRATORY ARREST, syncope Discharge Diagnosis: respiratory failure requiring intubation seizure temporal brain lesion thoracic compression and burst fracture aspiration pneumonia since resolved h/o atrial fibrillation Activity: Per Instructions section Activity Comment: no lifting more than 2 pounds Non-emergency contact: Primary Care Provider and Specialist Call non-emergency contact if: your symptoms worsen Follow-up/Referrals: Tunde Johnson MD [Physician] - 06/09/23 11:15 am Dee Nelson PA-C [Physician Chopped Strand Operator] - 05/27/23 8:15 am Raffi Caldwell DO [Surgeon] - 05/23/23 11:30 am (with Terence Arce PA-C. ) Lacy Hilliard PA-C [Primary Care Provider] - 05/25/23 11:00 am Diet: Regular Addtl Attending Provider Instructions: You are admitted with a respiratory arrest felt to be secondary to a seizure. The seizure is likely secondary to a temporal brain brain lesion that was discovered on your imaging. He will be continued on antiseizure medication called Bernard twice a day. You will be contacted by [facility] neurosurgical team for an appointment for evaluation for further diagnosis of this brain lesion. If you not hear from them in the next few days please call [facility] neurosurgery to try to facilitate your appointment. Surrounding the events that occurred when you passed out you also sustained thoracic spine fractures. Although these are stable there is little we can do to make them not moving they will be painful when you transition from positions from lying to sitting and sitting to standing. I did contact orthospine surgery and given the locations of your fractures these are not amenable to wearing a brace. You can follow-up with Dr. Adebayo Caldwell orthospine surgery to follow the healing of these fractures. During her hospital stay you also had some considerations if low heart rate was from medications that were initially prescribed for atrial fibrillation. You saw Dr. Johnson who recommended discontinuation of metoprolol and since that time you have had no irregular heart rhythms. You may wish to follow-up with Dr. Johnson in the cardiology clinic care. With these multiple changes in your health is also appropriate to see your family doctor to coordinate your care for all of the above would be ER senior copywriter if appointments are needed to be made As we mentioned at the bedside the most important would be to facilitate the appointment with neurosurgery Addtl General Merchandise Salesperson Provider Instructions: please report to the cardiology office in the [facility] office building to picked edge sewing machine operator your heart monitor Pending Studies at Discharge: No Stand-Alone Forms: My [facility], Smoking Cessation Medications and DC Order Prescriptions: New levetiracetam 750 mg tablet 750 mg PO BID Qty: 60 5RF oxycodone 5 mg Tablet 5 - 10 mg PO Q6H PRN (Reason: pain) Qty: 30 0RF acetaminophen [Tylenol Extra Strength] 500 mg Tablet 1,000 mg PO Q8H Qty: 90 0RF calcitonin (salmon) 200 unit/actuation [place],Non-Aerosol 1 spray NA Q24H Qty: 1 0RF amoxicillin-pot clavulanate 875-125 mg Tablet 1 tab PO BIDM Qty: 6 0RF lidocaine [Lidoderm] 5 % adhesive patch,medicated 1 patch topical DAILY Qty: 15 0RF Rx Instructions: leave on most painful area for up to 12 hrs Continued latanoprost 0.005 % Drops 1 drp OPHTHALMIC (EYE) PM Rx Instructions: Both eyes. brimonidine-timolol [Combigan] 0.2-0.5 % Drops 1 drp OPHTHALMIC (EYE) DAILY Discontinued metoprolol tartrate 50 mg Tablet 50 mg PO BID aspirin 81 mg Tablet,Chewable 81 mg PO DAILY Discharge Orders: Discharge Order (Routine); Ordered 05/19/23 Ordered By: Justin Guillen Admission Data Admit Date/Time: 05/15/23 10:19 Attending Provider: Justin Guillen Admit Provider: Lee Alves Primary Care Provider: Lacy Hilliard Other Providers: Yann Lobo; Gasper Hastings; Tunde Johnson; Mumtaz Hansen; Ady Whatley; Clement Irby; Erik Larsen Jr; Nba Leonard; Lynnette Nevarez; Tova Mcrae; Philip Bush; Philip Prasad; Donovan Mast; Christina Amin; Giovanna Fitzgerald; Zaire Castle; Manuel Cesar; Conor Matthews; Pedro Escobar Other Interventions: Discharge Summary Assessment (RN) Last Done: 05/19/23 12:33 Coding Level of Care Code 71479 INP/OBS DISCH >30 MIN Diagnoses Syncope and collapse R55 Abnormal brain MRI R90.89 Aspiration pneumonia of both lower lobes, unspecified aspiration pneumonia type J69.0 Aspiration pneumonia type: unspecified Laterality: bilateral Lung location: lower lobe of lung Paroxysmal A-fib I48.0 Chest pain R07.9
== END 2023-05-19 14:02 | disposition home or self-care (01) | DRG 208 ==
LOC: 1E 10:19 → SUATTDRO 10:19
DX: G40.89 Other seizures; R55 Syncope and collapse; J69.0 Pneumonitis due to inhalation of food and vomit; G93.9 Disorder of brain, unspecified; X58.XXXA Exposure to other specified factors, initial encounter; R41.82 Altered mental status, unspecified; I48.0 Paroxysmal atrial fibrillation; T44.7X5A Adverse effect of beta-adrenoreceptor antagonists, initial encounter; Z79.82 Long term (current) use of aspirin; Z79.899 Other long term (current) drug therapy; J96.01 Acute respiratory failure with hypoxia; I10 Essential (primary) hypertension; S22.051A Stable burst fracture of T5-T6 vertebra, initial encounter for closed fracture